=== PATIENT | male | born 1980 | race Caucasian/White ===

== ENCOUNTER 2019-10-16 13:38 | Inpatient (IN) ==
[2019-10-16] MEDS ORDERED: IOPAMIDOL 100 ML BOTTLE IV ONE (13:39)
[2019-10-16] MEDS ORDERED: ONDANSETRON 4 MG/2 ML VIAL IV ONE (14:08)
[2019-10-16] MEDS ORDERED: 0.9 % SODIUM CHLORIDE 1,000 ML IV ONE ×2 (14:08→20:25)
[2019-10-16] MEDS ORDERED: LORazepam 2 MG/ML VIAL IV ONE (14:09)
[2019-10-16 14:30] LABS: POC Blood Urea Nitrogen 14 mg/dl (6-20); POC CO2 26 mmol/L (22-30); POC Calcium, Ionized 0.92 mmol/L (1.16-1.32); POC Chloride 104 mmol/L (96-108); POC Creatinine 0.6 mg/dl (0.7-1.2); POC Glucose, Random 117 mg/dL (70-105); POC Sodium 129 mmol/L (133-145)
--- NOTE | 2019-10-16 14:38 | XRay Report ---
INDICATION: abdominal distention and pain TECHNIQUE: Supine and upright abdomen. COMPARISON: None FINDINGS:Unremarkable bowel gas pattern. No dilated gas-filled small bowel. No evidence for mechanical small bowel obstruction. No colonic distention. There is no pneumoperitoneum. No biliary or portal venous gas. There is no pneumatosis. No pathologic calcifications There is a linear density at the right lung base consistent with atelectasis or scarring IMPRESSION: Negative abdomen Interpreted and Authenticated by: Ramana Gordon 10/16/19
[2019-10-16 15:10] LABS: Basophils # (Auto) 0.03 K/mcL (0.00-0.30); Basophils % (Auto) 0.2 % (0.0-2.0); Eosinophils # (Auto) 0.05 K/mcL (0.00-0.70); Eosinophils % (Auto) 0.4 % (0.0-7.0); Hematocrit 44.1 % (40.1-51.0); Hemoglobin 15.9 g/dL (13.7-17.5); Lymphocytes # (Auto) 0.71 K/mcL (1.50-4.80); Lymphocytes % (Auto) 5.1 % (15.5-49.0); Mean Cell Volume 102.1 fL (80.0-100.0); Mean Corpuscular HGB Conc 36.1 g/dL (31.0-36.0); Mean Platelet Volume 11.6 fL (7.4-10.4); Monocytes # (Auto) 0.61 K/mcL (0.10-0.90); Monocytes % (Auto) 4.3 % (1.0-12.0); Platelet Count 295 K/mcL (140-440); RBC 4.32 M/mcL (4.63-6.08); Red Cell Distribution Width 13.3 % (11.5-14.5)
--- NOTE | 2019-10-16 15:40 | Ultrasound Report ---
INDICATION: diffuse distention and pain, worse RUQ abd pain TECHNIQUE: Grayscale and color flow Doppler spectral imaging COMPARISON: Previous CT scan dated 09/07/2019. Previous limited abdominal ultrasound dated 09/07/2019 FINDINGS: Pancreas:Visualized portions of the pancreas are negative Gallbladder:Negative. No cholelithiasis. No gallbladder wall thickening or pericholecystic fluid. Bile Ducts:No intra or extrahepatic bile duct dilatation. Common bile duct measures 4 mm Liver:There is enlarged. Liver measures approximately 21 cm maximally. Liver is echogenic and attenuates sound relative to the right kidney. Appearance is consistent with hepatic steatosis. Findings are unchanged since 09/07/2019. Liver contour is smooth. No ascites. Spleen:No splenomegaly. No focal intrasplenic abnormality. Normal hepatopedal portal venous flow Kidneys:Right kidney measures 11.5 x 5.0 x 4.1 cm. Left kidney measures 13.2 x 5.1 x 4.6 cm. No solid or cystic mass. No hydronephrosis Vascular:No abdominal aortic aneurysm IMPRESSION: 1. Hepatomegaly 2. Echogenic liver consistent with hepatic steatosis. No focal mass. 3. No ascites 4. Negative gallbladder 5. No interval change since 09/07/2019 Interpreted and Authenticated by: Ramana Gordon 10/16/19
[2019-10-16 16:17] LABS: ALT/SGPT 45 U/l (0-40); AST/SGOT 37 U/l (0-37); Albumin/Globulin Ratio 1.6 (1.0-2.3); Alkaline Phosphatase 148 U/L (39-117); Blood Urea Nitrogen 10 mg/dl (6-20); Calcium 8.9 mg/dl (8.6-10.4); Carbon Dioxide 23 mmol/L (22-30); Chloride 99 mmol/L (96-108); Globulin 2.5 gm/dL (2.2-3.7); Glomerular Filtration Rate 120; Glucose 118 mg/dL (70-105)
[2019-10-16] MEDS ORDERED: fentaNYL 100 MCG/2 ML VIAL IV ONE ×2 (16:37→18:08)
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
--- NOTE | 2019-10-16 17:53 | Cat Scan Report ---
INDICATION: RUQ abd pain, elevated lipase, distention COMPARISON: Previous CT scan dated 09/07/2019. Previous ultrasound dated 10/16/2019 TECHNIQUE: Axial images were obtained through the abdomen and pelvis. Sagittally and coronally reformatted images. 70 mL Isovue 370 injected intravenously. Oral contrast material was not administered FINDINGS: Lung bases:Lung bases are negative. No parenchymal infiltrate or mass. No pleural fluid. No pericardial fluid. Liver:Liver is enlarged. Liver measures approximately 20 cm in the midclavicular line. Left lobe of the liver is quite prominent and extends to the left lateral abdominal wall. There is severe hepatic steatosis. Liver contour is smooth. No focal hepatic mass Gallbladder, bilary:No calcified gallstones. No gallbladder wall thickening. No dilated intra or extrahepatic bile ducts. Spleen:Mild splenomegaly. Spleen measures 14 x 10 x 7 cm. Normal enhancement of splenic and portal veins Pancreas:Interstitial edematous pancreatitis. There is prominent peripancreatic inflammatory change. There is retroperitoneal fluid in the right and left anterior pararenal spaces. As no peripancreatic pseudocyst. The pancreas appears perfused without evidence for pancreatic necrosis or abscess. No detectable pancreatic mass. No dilated duct. Adrenal glands:Negative Kidneys, ureters, bladder:No solid or cystic renal mass. No hydronephrosis. No obstructing calculi. There is no hydroureter. No ureteral stone No bladder calculi or detectable mass Gastrointestinal:No detectable colonic mass. There is no diverticulitis. Small bowel is negative. No mechanical small bowel obstruction. Stomach and duodenum are unremarkable Appendix: The appendix is not visualized. Probable previous appendectomy Vascular:Negative abdominal aorta. Superior mesenteric artery and celiac trunk are normal. Normal opacification of the inferior mesenteric artery Lymphatic:No retroperitoneal or mesenteric adenopathy Mesentery, peritoneum: No free intraperitoneal fluid. No pneumoperitoneum. No intra-abdominal abscess Reproductive:Prostate is not enlarged Musculoskeletal:No lumbar compression fractures. Sacrum and pelvis are negative. No hip fracture. IMPRESSION: 1. Interstitial edematous pancreatitis. No pancreatic pseudocyst. No pancreatic necrosis or abscess 2. Peripancreatic inflammatory change. Mild fluid in the right and left anterior pararenal space 3. Hepatomegaly and severe hepatic steatosis The exam was performed using radiation dose optimization techniques including, but not limited to, automated exposure control, adjustment of the mA and/or kV according to patient size and use of iterative reconstruction technique. Interpreted and Authenticated by: Ramana Gordon 10/16/19
[2019-10-16 18:28] LABS: Amphetamine Screen,Urine NONE DETECTED (NONDETECTED); Barbiturate Screen,Urine NONE DETECTED (NONDETECTED); Benzodiazepines Screen,Urine NONE DETECTED (NONDETECTED); Cannabinoid Screen,Urine NONE DETECTED (NONDETECTED); Cocaine Screen,Urine NONE DETECTED (NONDETECTED); Opiate Screen,Urine NONE DETECTED (NONDETECTED); Oxycodone, Urine Screen NONE DETECTED (NONDETECTED); Phencyclidine Screen,Urine NONE DETECTED (NONDETECTED)
[2019-10-16] MEDS ORDERED: 0.9 % SODIUM CHLORIDE 1,000 ML IV SCH (18:56)
[2019-10-16] MEDS ORDERED: POLYETHYLENE GLYCOL 3350 17 GM PACKET PO PRN (18:56)
[2019-10-16] MEDS ORDERED: BISACODYL 10 MG SUPP.RECT PR PRN (18:56)
[2019-10-16] MEDS ORDERED: ACETAMINOPHEN 325 MG TABLET PO PRN (18:56)
[2019-10-16] MEDS ORDERED: MAGNESIUM SULFATE 2 GM/50 ML BAG IV PRN (18:56)
[2019-10-16] MEDS: HYDROmorphone 0.5 MG/0.5 ML SYRINGE IV PRN ×5 (19:36→23:58)
[2019-10-16] MEDS: ONDANSETRON 4 MG/2 ML VIAL IV PRN (19:36)
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
[2019-10-16] MEDS: DOCUSATE SODIUM 100 MG CAPSULE PO SCH (19:58)
[2019-10-16] MEDS ORDERED: PROMETHAZINE 25 MG/ML VIAL ONE (20:35)
[2019-10-16] MEDS: HEPARIN 5,000 UNIT/ML VIAL SQ SCH (20:40)
[2019-10-16] MEDS: LORazepam 2 MG/ML VIAL IV PRN (20:41)
[2019-10-16] MEDS: BUDESONIDE 0.5 MG/2 ML AMPUL.NEB NEB SCH (20:52)
[2019-10-16] MEDS: IPRATROPIUM/ALBUTEROL 3 ML AMPUL.NEB NEB PRN (21:01)
[2019-10-16] MEDS: 0.9 % SODIUM CHLORIDE 1,000 ML IV SCH (21:22)
[2019-10-16] MEDS: SENNOSIDES/DOCUSATE SODIUM 1 TAB TABLET PO SCH (21:24)
[2019-10-16] MEDS: 0.9 % SODIUM CHLORIDE 10 ML SYRINGE IV SCH ×2 (21:24→23:57)
[2019-10-17] MEDS: HYDROmorphone 0.5 MG/0.5 ML SYRINGE IV PRN ×18 (01:05→23:33)
[2019-10-17] MEDS: 0.9 % SODIUM CHLORIDE 1,000 ML IV SCH ×5 (01:06→21:11)
[2019-10-17] MEDS: LORazepam 2 MG/ML VIAL IV PRN ×5 (02:03→21:34)
[2019-10-17] MEDS: PROMETHAZINE 25 MG/ML VIAL IV PRN ×4 (02:05→19:30)
[2019-10-17] MEDS ORDERED: METOPROLOL TARTRATE 5 MG/5 ML VIAL IV ONE ×2 (02:12→05:35)
[2019-10-17] MEDS: IPRATROPIUM/ALBUTEROL 3 ML AMPUL.NEB NEB PRN ×3 (04:57→20:43)
[2019-10-17] MEDS: 0.9 % SODIUM CHLORIDE 10 ML SYRINGE IV SCH ×3 (06:33→21:11)
[2019-10-17] MEDS: NICOTINE 21 MG PATCH TOPICAL SCH (08:01)
[2019-10-17 08:20] LABS: Hematocrit 41.9 % (40.1-51.0); Hemoglobin 14.4 g/dL (13.7-17.5); Mean Cell Volume 105.5 fL (80.0-100.0); Mean Corpuscular HGB Conc 34.4 g/dL (31.0-36.0); Mean Platelet Volume 10.3 fL (7.4-10.4); Platelet Count 229 K/mcL (140-440); RBC 3.97 M/mcL (4.63-6.08); Red Cell Distribution Width 13.3 % (11.5-14.5); WBC 20.3 K/mcL (4.50-11.00)
[2019-10-17 08:39] LABS: ALT/SGPT 33 U/l (0-40); AST/SGOT 29 U/l (0-37); Albumin 3.4 gm/dL (3.2-5.2); Albumin/Globulin Ratio 1.3 (1.0-2.3); Alkaline Phosphatase 121 U/L (39-117); Bilirubin,Direct 0.3 mg/dL (0.0-0.3); Bilirubin,Total 0.8 mg/dL (0.0-1.0); Blood Urea Nitrogen 7 mg/dl (6-20); Chloride 104 mmol/L (96-108); Globulin 2.7 gm/dL (2.2-3.7); Glomerular Filtration Rate 128; Glucose 84 mg/dL (70-105); Lactate Dehydrogenase 332 U/L (94-250); Triglycerides 126 mg/dl (<150)
[2019-10-17 08:41] LABS: Carbon Dioxide 18 mmol/L (22-30); Phosphorous 2.2 mg/dL (2.7-4.5)
[2019-10-17] MEDS: HEPARIN 5,000 UNIT/ML VIAL SQ SCH ×2 (09:02→21:34)
[2019-10-17] MEDS: MULTIVIT,THER IRON,CA,FA & MIN 1 TABLET PO SCH (09:02)
[2019-10-17] MEDS: DOCUSATE SODIUM 100 MG CAPSULE PO SCH ×2 (09:02→21:11)
[2019-10-17 09:06] LABS: Lymphocytes % 1 % (15-49); Macrocytosis 1+ (NONE SEEN); Monocytes % (Manual) 5 % (1-12); Platelet Estimate NORMAL (NORMAL); RBC Morphology ABNORM (NORMAL); Segmented Neutrophils % 94 % (38-78)
--- NOTE | 2019-10-17 09:06 | Internal Med Progress Note ---
Medical - PN: Subj Patient information: Note initiated : 10/17/19 at 9:04 am Service Date, if different from initiated Date: [] Patient: Moises Royal a 38 y/o M admitted on 10/16/19 for mid abd pain. Chief Complaint: [] Interval history: Mr. Royal is a 38 year old M with history of chronic IV drug use/COPD, hype rtension/hepatitis C who presents to the ER with 2 days onset of worsening abdominal pain described as 6 out of 10-10 out of 10 epigastric with radiation to the back associated with nausea vomiting. Patient consumes alcohol intermittently. He denies associated fever, chills, diarrhea, dysuria, headache, photophobia. Initial work-up in the ER was consistent with severe pancreatitis and CT/elevat ed lipase/tachycardia tachypnea elevated white count. Elevated [place] 2 score of 15. Patient started on aggressive crystalloid/pain medications Hospitalist service was consulted At the time evaluation patient is lethargic fatigue and drowsy under effect of IV opioids. He was able to answer some of the questions. He endorses 10 out of 10 pain. Recent alcohol use 2 days ago. Active smoker. Lives with mother. Denies new medications. 10/16-white count of 20,000. Persistent abdominal pain requiring hourly opioids. Status post 5 L crystalloid since admission. Keep n.p.o. Tachycardic at 130. Elevated LDH. Close monitoring for complications. Repeat CT if evidence of worsening pancreatitis to rule out hemorrhage/necrosis. Lipase down to 600. - Constitutional Vitals: Vital Signs Temp Pulse Resp BP Pulse Ox 99.8 F H 119 H 22 140/107 93 10/17/19 02:01 10/16/19 21:06 10/17/19 06:30 10/17/19 06:01 10/17/19 07:24 Period Temp Pulse Resp BP Sys/Campos Pulse Ox Last 24 Hr 98.4 F-100.1 F 109-133 17-30 137-173/97-117 87-98 Intake and Output 10/16/19 10/17/19 10/17/19 21:59 05:59 13:59 Intake Total 3000 1933 Output Total 375 450 Balance 2625 1483 Weight 232 lb Intake & Output: Intake & Output 10/16/19 10/17/19 10/17/19 21:59 05:59 13:59 Intake Total 3000 1933 Output Total 375 450 Balance 2625 1483 Weight 232 lb Intake: IV 3000 1933 Sodium Chloride 0.9% 1,000 ml @ 3000 1933 250 mls/hr IV .Q4H [facility] Rx#: [id number] Output: Void Amount 375 450 Other: Urine Appearance Clear Urine Color Dark Yellow Dark Yellow # Voids 1 # Unmeasured Emesis 2 General appearance: moderate distress Exam: Sedated under effect of opioids Labored breathing Tachycardic at 130s Distended abdomen Anxious Medical - PN: Obj Da - Labs CBC & Chem 7: 10/17/19 05:45 10/17/19 05:45 Labs: Abnormal Lab Results 10/17/19 10/17/19 10/16/19 05:45 05:45 14:56 WBC 20.3 H RBC 3.97 L MCV 105.5 H MCH 36.3 H MCHC MPV Gran % Lymph % (Auto) Gran # Lymph # (Auto) POC Sodium Carbon Dioxide 18 L Creatinine 0.6 L POC Creatinine Glucose POC Glucose Calcium 8.0 L POC WB Ioniz Calcium Phosphorus 2.2 L GGT 270 H ALT Alkaline Phosphatase 121 H Lactate Dehydrogenase 332 H C-Reactive Protein 3.7 H Lipase 685 H 10/16/19 10/16/19 13:53 13:53 WBC 14.0 H RBC 4.32 L MCV 102.1 H MCH 36.8 H MCHC 36.1 H MPV 11.6 H Gran % 90.0 H Lymph % (Auto) 5.1 L Gran # 12.64 H Lymph # (Auto) 0.71 L POC Sodium 129 L Carbon Dioxide Creatinine POC Creatinine 0.6 L Glucose 118 H POC Glucose 117 H Calcium POC WB Ioniz Calcium 0.92 L Phosphorus GGT ALT 45 H Alkaline Phosphatase 148 H Lactate Dehydrogenase C-Reactive Protein Lipase 1618 H Meds: Medications Acetaminophen (Tylenol) 650 mg PO Q4-6HP PRN; Protocol PRN Reason: Per Pain Protocol/Fever > 101 Albuterol/Ipratropium (Duoneb) 3 ml NEB Q4HP PRN PRN Reason: Shortness Of Breath Last Admin: 10/17/19 04:57 Dose: 3 ml Documented by: Bisacodyl (Dulcolax) 10 mg GA Q2-3DAYS PRN PRN Reason: Constipation Budesonide (Pulmicort) 0.5 mg NEB Q12 [facility] Last Admin: 10/16/19 20:52 Dose: 0.5 mg Documented by: Docusate Sodium (Colace) 100 mg PO BID [facility] Last Admin: 10/17/19 09:02 Dose: 100 mg Documented by: Heparin Sodium (Porcine) (Heparin) 5,000 unit SQ Q12 [facility] Last Admin: 10/17/19 09:02 Dose: 5,000 unit Documented by: Hydromorphone HCl (Dilaudid) 0 mg IV Q1HP PRN; Protocol PRN Reason: Per Pain Protocol Last Admin: 10/17/19 07:17 Dose: 0.5 mg Documented by: Sodium Chloride (Sodium Chloride 0.9%) 1,000 mls @ 0 mls/hr IV BOLUS [facility] Last Infusion: 10/16/19 20:47 Dose: Infused Documented by: Sodium Chloride (Sodium Chloride 0.9%) 1,000 mls @ 250 mls/hr IV .Q4H [facility] Last Admin: 10/17/19 05:12 Dose: 250 mls/hr Documented by: Acetaminophen (Ofirmev) 650 mg in 65 mls @ 130 mls/hr IV Q6HP PRN; Protocol PRN Reason: Per Pain Protocol/Fever > 101 Potassium Chloride 40 meq/ (Dextrose) 520 mls @ 130 mls/hr IV UD PRN PRN Reason: K+ = or < 3.5 Magnesium Sulfate (Magnesium Sulfate) 2 gm in 50 mls @ 50 mls/hr IV UD PRN PRN Reason: MG = or < 1.7 Iron Carb/Multivit/[place]/Folic Acid (Multivitamin W/Minerals) 1 tab PO DAILY [facility] Last Admin: 10/17/19 09:02 Dose: 1 tab Documented by: Lorazepam (Ativan) 0.5 mg IV Q4HP PRN PRN Reason: ANXIETY/SEDATION Last Admin: 10/17/19 08:00 Dose: 0.5 mg Documented by: Metoprolol Tartrate (Lopressor) 5 mg IV Q5M PRN PRN Reason: Tachyarrhythmias Nicotine (Nicoderm) 21 mg TOPICAL DAILY@1000 [facility] Last Admin: 10/17/19 08:01 Dose: 21 mg Documented by: Ondansetron HCl (Zofran Odt) 4 mg SL Q4-6HP PRN; Protocol PRN Reason: Nausea And Vomiting Ondansetron HCl (Zofran) 4 mg IV Q4-6HP PRN; Protocol PRN Reason: Nausea And Vomiting Last Admin: 10/16/19 19:36 Dose: 4 mg Documented by: Polyethylene Glycol (Miralax) 17 gm PO DAILYP PRN PRN Reason: Constipation Promethazine HCl (Phenergan) 0 mg IV Q4HP PRN PRN Reason: Nausea And Vomiting Last Admin: 10/17/19 02:05 Dose: 12.5 mg Documented by: Senna/Docusate Sodium (Senna Plus Tablet) 1 tab PO HS [facility] Last Admin: 10/16/19 21:24 Dose: Not Given Documented by: Sodium Chloride (Saline Flush) 10 ml IV Q8 [facility] Last Admin: 10/17/19 06:33 Dose: Not Given Documented by: Medical - PN: A/P - Time Spent With Patient Total time spent is greater than 50% in coordination of care (as documented) at patient's floor/unit and/or counseling patient: 25 - 35 minutes (1) Pancreatitis Status: Acute Assessment and plan: * Severe pancreatitis with elevated lipase/[place] Ira 2 score and [place] score on admit. Lipase now down to 600. White count 20,000. Aggressive crystalloids. Continue bowel rest/antiemetics and analgesics. * Severe abdominal pain continue IV opioids * History of hypertension continue as needed hydralazine. Hold oral medications until clinically improved history of IV drug use/opioid dependence currently on Suboxone.. Held in light of severe pain requiring opioids * Anxiety disorder continue as needed IV anxiolytics * History of COPD continue bronchodilators * Full code * Prophylaxis heparin Plan * Continue ICU care * Continue aggressive crystalloids * Serial lipase/CRP/abdominal imaging if indicated * Pain management * Prior medical condition management on IV medications until able to take orally * Patient remains critically ill Current Visit: Yes
[2019-10-17] MEDS: BUDESONIDE 0.5 MG/2 ML AMPUL.NEB NEB SCH ×2 (09:08→20:43)
[2019-10-17] MEDS: POTASSIUM CHLORIDE 40 MEQ in DEXTROSE 5% IN WATER 500 ML IV PRN (11:51)
[2019-10-17] MEDS ORDERED: POTASSIUM CHLORIDE 20 MEQ, MAGNESIUM SULFATE 16.24 MEQ, THIAMINE 100 MG, MVI, ADULT NO.... IV SCH (13:00)
[2019-10-17 16:12] LABS: Hematocrit 41.9 % (40.1-51.0); Mean Cell Volume 107.2 fL (80.0-100.0); Mean Corpuscular HGB Conc 33.4 g/dL (31.0-36.0); Mean Platelet Volume 10.1 fL (7.4-10.4); Platelet Count 210 K/mcL (140-440); RBC 3.91 M/mcL (4.63-6.08); Red Cell Distribution Width 13.4 % (11.5-14.5); WBC 20.4 K/mcL (4.50-11.00)
[2019-10-17 16:30] LABS: ALT/SGPT 29 U/l (0-40); AST/SGOT 26 U/l (0-37); Albumin 3.6 gm/dL (3.2-5.2); Albumin/Globulin Ratio 1.4 (1.0-2.3); Alkaline Phosphatase 116 U/L (39-117); Bilirubin,Direct 0.5 mg/dL (0.0-0.3); Bilirubin,Total 0.9 mg/dL (0.0-1.0); Blood Urea Nitrogen 7 mg/dl (6-20); Calcium 8.3 mg/dl (8.6-10.4); Carbon Dioxide 20 mmol/L (22-30); Chloride 103 mmol/L (96-108); Globulin 2.6 gm/dL (2.2-3.7); Glomerular Filtration Rate 120; Glucose 100 mg/dL (70-105); Lactate Dehydrogenase 382 U/L (94-250); Phosphorous 1.3 mg/dL (2.7-4.5); Triglycerides 130 mg/dl (<150); Uric Acid 4.7 mg/dL (2.5-8.0)
[2019-10-17 16:43] LABS: Anisocytosis 1+ (NONE SEEN); Eosinophils % (Manual) 2 % (0-7); Lymphocytes % 6 % (15-49); Macrocytosis 1+ (NONE SEEN); Monocytes % (Manual) 2 % (1-12); Platelet Estimate NORMAL (NORMAL); RBC Morphology ABNORM (NORMAL); Segmented Neutrophils % 90 % (38-78)
[2019-10-17] MEDS: METOPROLOL TARTRATE 5 MG/5 ML VIAL IV PRN ×2 (17:35→22:47)
[2019-10-17] MEDS: ONDANSETRON 4 MG/2 ML VIAL IV PRN (18:02)
[2019-10-17] MEDS: SENNOSIDES/DOCUSATE SODIUM 1 TAB TABLET PO SCH (21:11)
[2019-10-18] MEDS: HYDROmorphone 0.5 MG/0.5 ML SYRINGE IV PRN ×16 (01:02→22:18)
[2019-10-18] MEDS: ONDANSETRON 4 MG/2 ML VIAL IV PRN (01:37)
[2019-10-18] MEDS: LORazepam 2 MG/ML VIAL IV PRN ×5 (01:37→18:50)
[2019-10-18] MEDS: ACETAMINOPHEN 650 MG/65 ML BOTTLE IV PRN ×3 (02:07→18:50)
[2019-10-18] MEDS: 0.9 % SODIUM CHLORIDE 1,000 ML IV SCH ×2 (03:43→14:57)
[2019-10-18] MEDS: IPRATROPIUM/ALBUTEROL 3 ML AMPUL.NEB NEB PRN ×3 (04:49→20:36)
[2019-10-18] MEDS: 0.9 % SODIUM CHLORIDE 10 ML SYRINGE IV SCH ×5 (05:14→20:41)
[2019-10-18 06:27] LABS: Hematocrit 40.5 % (40.1-51.0); Hemoglobin 13.1 g/dL (13.7-17.5); Mean Cell Volume 112.2 fL (80.0-100.0); Mean Corpuscular HGB Conc 32.3 g/dL (31.0-36.0); Mean Platelet Volume 10.5 fL (7.4-10.4); Platelet Count 194 K/mcL (140-440); RBC 3.61 M/mcL (4.63-6.08); Red Cell Distribution Width 13.2 % (11.5-14.5); WBC 20.9 K/mcL (4.50-11.00)
[2019-10-18 06:50] LABS: ALT/SGPT 25 U/l (0-40); AST/SGOT 30 U/l (0-37); Albumin 3.1 gm/dL (3.2-5.2); Albumin/Globulin Ratio 1.1 (1.0-2.3); Alkaline Phosphatase 128 U/L (39-117); Bilirubin,Direct 0.6 mg/dL (0.0-0.3); Blood Urea Nitrogen 7 mg/dl (6-20); Calcium 8.2 mg/dl (8.6-10.4); Carbon Dioxide 17 mmol/L (22-30); Chloride 103 mmol/L (96-108); Globulin 2.9 gm/dL (2.2-3.7); Glomerular Filtration Rate 128; Glucose 62 mg/dL (70-105); Lactate Dehydrogenase 354 U/L (94-250); Triglycerides 114 mg/dl (<150); Uric Acid 4.8 mg/dL (2.5-8.0)
[2019-10-18 08:31] LABS: Eosinophils % (Manual) 1 % (0-7); Lymphocytes % 3 % (15-49); Macrocytosis 2+ (NONE SEEN); Monocytes % (Manual) 2 % (1-12); Platelet Estimate NORMAL (NORMAL); RBC Morphology ABNORM (NORMAL); Segmented Neutrophils % 94 % (38-78)
[2019-10-18] MEDS: THIAMINE 100 MG TABLET PO SCH (08:49)
[2019-10-18] MEDS: MULTIVIT,THER IRON,CA,FA & MIN 1 TABLET PO SCH (08:49)
[2019-10-18] MEDS: DOCUSATE SODIUM 100 MG CAPSULE PO SCH ×2 (08:49→20:23)
[2019-10-18] MEDS: HEPARIN 5,000 UNIT/ML VIAL SQ SCH ×2 (08:53→20:24)
[2019-10-18] MEDS: BUDESONIDE 0.5 MG/2 ML AMPUL.NEB NEB SCH ×2 (09:05→20:36)
[2019-10-18] MEDS ORDERED: ALBUTEROL SULFATE 200 PUFF INHALER INH PRN (09:18)
[2019-10-18] MEDS ORDERED: Budesonide/Formoterol Fumarate [Symbicort] 160-4.5 mcg Inhaler INH PRN (09:18)
[2019-10-18] MEDS ORDERED: DIAZEPAM 10 MG/2 ML SYRINGE IV PRN (09:19)
[2019-10-18] MEDS: DEXTROSE 5%-1/2NS 1,000 ML IV SCH (09:20)
--- NOTE | 2019-10-18 09:24 | Internal Med Progress Note ---
Medical - PN: Subj Patient information: Note initiated : 10/18/19 at 9:22 am Service Date, if different from initiated Date: [] Patient: Moises Royal a 38 y/o M admitted on 10/16/19 for mid abd pain. Chief Complaint: [] Interval history: Mr. Royal is a 38 year old M with history of chronic IV drug use/COPD, hype rtension/hepatitis C who presents to the ER with 2 days onset of worsening abdominal pain described as 6 out of 10-10 out of 10 epigastric with radiation to the back associated with nausea vomiting. Patient consumes alcohol intermittently. He denies associated fever, chills, diarrhea, dysuria, headache, photophobia. Initial work-up in the ER was consistent with severe pancreatitis and CT/elevat ed lipase/tachycardia tachypnea elevated white count. Elevated [place] 2 score of 15. Patient started on aggressive crystalloid/pain medications Hospitalist service was consulted At the time evaluation patient is lethargic fatigue and drowsy under effect of IV opioids. He was able to answer some of the questions. He endorses 10 out of 10 pain. Recent alcohol use 2 days ago. Active smoker. Lives with mother. Denies new medications. 10/16-white count of 20,000. Persistent abdominal pain requiring hourly opioids. Status post 5 L crystalloid since admission. Keep n.p.o. Tachycardic at 130. Elevated LDH. Close monitoring for complications. Repeat CT if evidence of worsening pancreatitis to rule out hemorrhage/necrosis. Lipase down to 600. 10/17-patient showing signs of alcohol withdrawal. Worsening pancreatitis with elevated CRP. Remains tachycardic around 130s to 140s. Now hypoxia requiring 3 days oxygen. Stat chest x-ray. Continue [facility]WA protocol. Remains delirious and confused. On 3 days oxygen. Distended abdomen. Improving urinary output. White count 20,900. LDH downtrending, creatinine 0.6. Continues to remain critically ill. Start Dobbhoff tube feeding today at a slow rate. - Constitutional Vitals: Vital Signs Temp Pulse Resp BP Pulse Ox 98.6 F 131 H 19 151/98 91 10/18/19 04:00 10/18/19 09:15 10/18/19 09:15 10/18/19 07:01 10/18/19 09:06 Period Temp Pulse Resp BP Sys/Campos Pulse Ox Last 24 Hr 98.6 F-100.7 F 131-151 13-32 135-166/85-134 84-99 Intake and Output 10/17/19 10/18/19 10/18/19 21:59 05:59 13:59 Intake Total 941 1045 620 Output Total 450 850 Balance 491 195 620 Weight 237 lb 8 oz Intake & Output: Intake & Output 10/17/19 10/18/19 10/18/19 21:59 05:59 13:59 Intake Total 941 1045 620 Output Total 450 850 Balance 491 195 620 Weight 237 lb 8 oz Intake: IV 941 1045 620 Sodium Chloride 0.9% 1,000 ml @ 941 980 620 125 mls/hr IV .Q8H [facility] Rx#: [id number] Output: Void Amount 450 850 Other: Urine Appearance Clear Clear Urine Color Dark Unique Dark Unique Urine Odor Strong # Voids 300 General appearance: moderate distress Exam: Confused and drowsy Distended and tender abdomen Minimally labored breathing on 3 days oxygen Tachycardia 130s to 140s No lymphedema Medical - PN: Obj Da - Labs CBC & Chem 7: 10/18/19 04:39 10/18/19 04:39 Labs: Abnormal Lab Results 10/18/19 10/18/19 10/18/19 04:39 04:39 04:39 WBC 20.9 H RBC 3.61 L Hgb 13.1 L MCV 112.2 H MCH 36.3 H MCHC MPV 10.5 H Gran % Lymph % (Auto) Gran # Lymph # (Auto) Seg Neutrophils % 94 H Lymphocytes % 3 L RBC Morphology Abnorm A Anisocytosis Macrocytosis 2+ A POC Sodium Carbon Dioxide 17 L Creatinine 0.6 L POC Creatinine Glucose 62 L POC Glucose Calcium 8.2 L POC WB Ioniz Calcium Phosphorus 2.0 L Direct Bilirubin 0.6 H GGT 239 H ALT Alkaline Phosphatase 128 H Lactate Dehydrogenase 354 H C-Reactive Protein 34.5 H Albumin 3.1 L Lipase 144 H 10/17/19 10/17/19 10/17/19 15:32 15:32 11:45 WBC 20.4 H RBC 3.91 L Hgb MCV 107.2 H MCH 35.8 H MCHC MPV Gran % Lymph % (Auto) Gran # Lymph # (Auto) Seg Neutrophils % 90 H Lymphocytes % 6 L RBC Morphology Abnorm A Anisocytosis 1+ A Macrocytosis 1+ A POC Sodium Carbon Dioxide 20 L Creatinine POC Creatinine Glucose POC Glucose Calcium 8.3 L POC WB Ioniz Calcium Phosphorus 1.3 L Direct Bilirubin 0.5 H GGT 257 H ALT Alkaline Phosphatase Lactate Dehydrogenase 382 H C-Reactive Protein 25.3 H Albumin Lipase 10/17/19 10/17/19 10/16/19 05:45 05:45 14:56 WBC 20.3 H RBC 3.97 L Hgb MCV 105.5 H MCH 36.3 H MCHC MPV Gran % Lymph % (Auto) Gran # Lymph # (Auto) Seg Neutrophils % 94 H Lymphocytes % 1 L RBC Morphology Abnorm A Anisocytosis Macrocytosis 1+ A POC Sodium Carbon Dioxide 18 L Creatinine 0.6 L POC Creatinine Glucose POC Glucose Calcium 8.0 L POC WB Ioniz Calcium Phosphorus 2.2 L Direct Bilirubin GGT 270 H ALT Alkaline Phosphatase 121 H Lactate Dehydrogenase 332 H C-Reactive Protein 3.7 H Albumin Lipase 685 H 10/16/19 10/16/19 13:53 13:53 WBC 14.0 H RBC 4.32 L Hgb MCV 102.1 H MCH 36.8 H MCHC 36.1 H MPV 11.6 H Gran % 90.0 H Lymph % (Auto) 5.1 L Gran # 12.64 H Lymph # (Auto) 0.71 L Seg Neutrophils % Lymphocytes % RBC Morphology Anisocytosis Macrocytosis POC Sodium 129 L Carbon Dioxide Creatinine POC Creatinine 0.6 L Glucose 118 H POC Glucose 117 H Calcium POC WB Ioniz Calcium 0.92 L Phosphorus Direct Bilirubin GGT ALT 45 H Alkaline Phosphatase 148 H Lactate Dehydrogenase C-Reactive Protein Albumin Lipase 1618 H Meds: Medications Acetaminophen (Tylenol) 650 mg PO Q4-6HP PRN; Protocol PRN Reason: Per Pain Protocol/Fever > 101 Albuterol Sulfate (Ventolin) 2 puff INH .Q4-6H PRN PRN Reason: shortness of breath or wheezing Albuterol/Ipratropium (Duoneb) 3 ml NEB Q4HP PRN PRN Reason: Shortness Of Breath Last Admin: 10/18/19 09:05 Dose: 3 ml Documented by: Bisacodyl (Dulcolax) 10 mg LA Q2-3DAYS PRN PRN Reason: Constipation Budesonide (Pulmicort) 0.5 mg NEB Q12 [facility] Last Admin: 10/18/19 09:05 Dose: 0.5 mg Documented by: Bupropion HCl (Wellbutrin) mg PO TID [facility] Clonidine HCl (Catapres) mg PO DAILY [facility] Diazepam (Valium) 10 mg IV Q2HP PRN PRN Reason: Alcohol Withdrawal Docusate Sodium (Colace) 100 mg PO BID [facility] Last Admin: 10/18/19 08:49 Dose: Not Given Documented by: Fluoxetine HCl (Prozac) 20 mg PO QDAY [facility] Furosemide (Lasix) 40 mg PO BID [facility] Gabapentin (Neurontin) 300 mg PO BID [facility] Heparin Sodium (Porcine) (Heparin) 5,000 unit SQ Q12 [facility] Last Admin: 10/18/19 08:53 Dose: 5,000 unit Documented by: Hydromorphone HCl (Dilaudid) 0 mg IV Q1HP PRN; Protocol PRN Reason: Per Pain Protocol Last Admin: 10/18/19 08:02 Dose: 0.5 mg Documented by: Acetaminophen (Ofirmev) 650 mg in 65 mls @ 130 mls/hr IV Q6HP PRN; Protocol PRN Reason: Per Pain Protocol/Fever > 101 Last Admin: 10/18/19 08:03 Dose: 130 mls/hr Documented by: Potassium Chloride 40 meq/ (Dextrose) 520 mls @ 130 mls/hr IV UD PRN PRN Reason: K+ = or < 3.5 Last Admin: 10/17/19 11:51 Dose: 130 mls/hr Documented by: Magnesium Sulfate (Magnesium Sulfate) 2 gm in 50 mls @ 50 mls/hr IV UD PRN PRN Reason: MG = or < 1.7 Dextrose/Sodium Chloride (Dextrose 5%-1/2ns Iv Solution) 1,000 mls @ 75 mls/hr IV .[id number] [facility] Iron Carb/Multivit/[place]/Folic Acid (Multivitamin W/Minerals) 1 tab PO DAILY [facility] Last Admin: 10/18/19 08:49 Dose: Not Given Documented by: Lorazepam (Ativan) 0.5 mg IV Q4HP PRN PRN Reason: ANXIETY/SEDATION Last Admin: 10/18/19 05:41 Dose: 0.5 mg Documented by: Metoprolol Succinate (Toprol Xl) 25 mg PO QDAY [facility] Metoprolol Tartrate (Lopressor) 5 mg IV Q5M PRN PRN Reason: Tachyarrhythmias Last Admin: 10/17/19 22:47 Dose: 5 mg Documented by: Nicotine (Nicoderm) 21 mg TOPICAL DAILY@1000 [facility] Last Admin: 10/17/19 08:01 Dose: 21 mg Documented by: Non-Formulary Medication (Budesonide/Formoterol Fumarate [Symbicort 160-4.5 Mcg Inhaler]) 2 puff PO BID PRN PRN Reason: Shortness Of Breath Omeprazole (Prilosec) 20 mg PO QDAY [facility] Ondansetron HCl (Zofran Odt) 4 mg SL Q4-6HP PRN; Protocol PRN Reason: Nausea And Vomiting Ondansetron HCl (Zofran) 4 mg IV Q4-6HP PRN; Protocol PRN Reason: Nausea And Vomiting Last Admin: 10/18/19 01:37 Dose: 4 mg Documented by: Polyethylene Glycol (Miralax) 17 gm PO DAILYP PRN PRN Reason: Constipation Promethazine HCl (Phenergan) 0 mg IV Q4HP PRN PRN Reason: Nausea And Vomiting Last Admin: 10/17/19 19:30 Dose: 12.5 mg Documented by: Senna/Docusate Sodium (Senna Plus Tablet) 1 tab PO [facility] Last Admin: 10/17/19 21:11 Dose: Not Given Documented by: Sodium Chloride (Saline Flush) 10 ml IV Q8 [facility] Last Admin: 10/18/19 05:14 Dose: Not Given Documented by: Sodium Chloride (Saline Flush) 10 ml IV Q8 [facility] Tamsulosin HCl (Flomax) 0.4 mg PO QHS [facility] Thiamine HCl (Vitamin B1) 100 mg PO DAILY [facility] Last Admin: 10/18/19 08:49 Dose: Not Given Documented by: Medical - PN: A/P - Time Spent With Patient Total time spent is greater than 50% in coordination of care (as documented) at patient's floor/unit and/or counseling patient: Greater than 35 minutes (Critical care time) (1) Pancreatitis Status: Acute Assessment and plan: * Severe pancreatitis with multiorgan dysfunction including early ARDS/[place] 2 score 16. Elevated [place] score at 48 hours. Lipase downtrending from 1200- >200. White count elevated at 21,000. Continue crystalloids/bowel rest. Dobbhoff tube feeding * Hypoxic respiratory failure now on 3 days oxygen. Likely early ARDS. Chest imaging. Supplemental oxygen. Initiate diuresis. * Alcohol withdrawal start [facility] protocol on benzodiazepine. Continue multivitamin/thiamine * Severe abdominal pain on as needed IV opioids * History of hypertension continue as needed hydralazine. Restart oral medications * History of IV drug use/opioid dependence currently on Suboxone. Held in light of severe pain requiring opioids * Anxiety disorder continue as needed IV anxiolytics * History of COPD continue bronchodilators * Full code * Prophylaxis heparin Plan * Continue ICU care * Chest imaging * Start [facility] protocol * Restart home medications * Enteral nutrition via Dobbhoff * Serial lipase/CRP * Repeat abdominal imaging in 24 hours if continues to deteriorate * Aggressive pain management * Patient remains critically ill Current Visit: Yes
--- NOTE | 2019-10-18 09:49 | XRay Report ---
INDICATION: hypoxia TECHNIQUE: AP portable upright chest x-ray COMPARISON: Previous chest x-ray dated 09/07/2019 FINDINGS: Lungs:Linear densities at both lung bases consistent with atelectasis. No other pulmonary parenchymal abnormality. No parenchymal consolidation or evidence for pneumonia. There is no discrete mass. Heart, vascular:No significant cardiomegaly. Pulmonary vascularity is normal. No pulmonary edema or pulmonary congestion Mediastinum, serjio:No mediastinal widening. No hilar mass Pleura:No pleural fluid. No pleural-based mass or calcification Skeletal:Negative. IMPRESSION: 1. Linear parenchymal densities at both lung bases consistent with atelectasis 2. No parenchymal consolidation. No evidence for pneumonia Interpreted and Authenticated by: Ramana Gordon 10/18/19
[2019-10-18] MEDS: NICOTINE 21 MG PATCH TOPICAL SCH (10:04)
[2019-10-18] MEDS ORDERED: METOPROLOL SUCCINATE 25 MG TAB.XL.24H PO ONE (12:32)
[2019-10-18] MEDS: PANTOPRAZOLE 40 MG VIAL IV SCH (13:17)
--- NOTE | 2019-10-18 13:23 | XRay Report ---
INDICATION: dobhoff placement TECHNIQUE: Supine abdomen. COMPARISON: None FINDINGS:Pelvic tip feeding tube with its tip in the gastric antrum. Intensive care unit was called with these results IMPRESSION: Metallic tip feeding tube with its tip in the gastric antrum Interpreted and Authenticated by: Ramana Gordon 10/18/19
--- NOTE | 2019-10-18 14:17 | XRay Report ---
INDICATION: advance dobhoff to reenaenu TECHNIQUE: 32 seconds fluoroscopy utilized. A Dobbhoff feeding tube had been placed in the stomach in the intensive care unit. This tube was advanced into the duodenum, proximal to the ligament of Treitz. IMPRESSION: Dobbhoff feeding tube is advanced into the distal duodenum. Interpreted and Authenticated by: Ramana Gordon 10/18/19
[2019-10-18] MEDS: FUROSEMIDE 40 MG TABLET PO SCH (15:32)
[2019-10-18] MEDS: buPROPion 100 MG TABLET PO SCH ×2 (15:35→20:24)
[2019-10-18] MEDS: PROMETHAZINE 25 MG/ML VIAL IV PRN (16:53)
[2019-10-18] MEDS: TAMSULOSIN 0.4 MG CAPSULE PO SCH (20:23)
[2019-10-18] MEDS: GABAPENTIN 300 MG CAPSULE PO SCH (20:23)
[2019-10-18] MEDS: SENNOSIDES/DOCUSATE SODIUM 1 TAB TABLET PO SCH (20:24)
[2019-10-18] MEDS: CHLORHEXIDINE GLUCONATE 1 ML ORAL.SOL SWABMOUTH SCH (20:24)
[2019-10-19] MEDS: ACETAMINOPHEN 650 MG/65 ML BOTTLE IV PRN ×2 (00:01→23:29)
[2019-10-19] MEDS: LORazepam 2 MG/ML VIAL IV PRN ×4 (00:05→22:49)
[2019-10-19] MEDS: DEXTROSE 5%-1/2NS 1,000 ML IV SCH ×4 (00:05→16:30)
[2019-10-19] MEDS: ONDANSETRON 4 MG/2 ML VIAL IV PRN ×3 (00:50→16:30)
[2019-10-19] MEDS: IPRATROPIUM/ALBUTEROL 3 ML AMPUL.NEB NEB PRN (01:27)
[2019-10-19] MEDS: HYDROmorphone 0.5 MG/0.5 ML SYRINGE IV PRN ×8 (01:28→21:32)
[2019-10-19] MEDS: 0.9 % SODIUM CHLORIDE 10 ML SYRINGE IV SCH ×3 (04:22→20:28)
[2019-10-19 06:15] LABS: Hematocrit 37.3 % (40.1-51.0); Hemoglobin 12.3 g/dL (13.7-17.5); Mean Platelet Volume 10.4 fL (7.4-10.4); Platelet Count 161 K/mcL (140-440); RBC 3.36 M/mcL (4.63-6.08); WBC 14.4 K/mcL (4.50-11.00)
[2019-10-19] MEDS: PANTOPRAZOLE 40 MG VIAL IV SCH (06:48)
[2019-10-19 06:55] LABS: Chloride 98 mmol/L (96-108)
[2019-10-19 06:56] LABS: ALT/SGPT 31 U/l (0-40); AST/SGOT 56 U/l (0-37); Albumin 2.8 gm/dL (3.2-5.2); Albumin/Globulin Ratio 0.8 (1.0-2.3); Alkaline Phosphatase 166 U/L (39-117); Bilirubin,Direct 0.5 mg/dL (0.0-0.3); Blood Urea Nitrogen 5 mg/dl (6-20); Calcium 8.5 mg/dl (8.6-10.4); Carbon Dioxide 20 mmol/L (22-30); Globulin 3.4 gm/dL (2.2-3.7); Glomerular Filtration Rate 128; Glucose 92 mg/dL (70-105); Lactate Dehydrogenase 392 U/L (94-250); Phosphorous 1.1 mg/dL (2.7-4.5); Triglycerides 136 mg/dl (<150); Uric Acid 5.4 mg/dL (2.5-8.0)
[2019-10-19] MEDS ORDERED: OMEPRAZOLE 20 MG CAPSULE PO SCH (07:30)
[2019-10-19] MEDS: BUDESONIDE 0.5 MG/2 ML AMPUL.NEB NEB SCH ×2 (08:36→20:05)
--- NOTE | 2019-10-19 09:19 | Internal Med Progress Note ---
Medical - PN: Subj Patient information: Note initiated : 10/19/19 at 9:15 am Service Date, if different from initiated Date: [] Patient: Moises Royal a 38 y/o M admitted on 10/16/19 for mid abd pain. Chief Complaint: [] Interval history: Mr. Royal is a 38 year old M with history of chronic IV drug use/COPD, hype rtension/hepatitis C who presents to the ER with 2 days onset of worsening abdominal pain described as 6 out of 10-10 out of 10 epigastric with radiation to the back associated with nausea vomiting. Patient consumes alcohol intermittently. He denies associated fever, chills, diarrhea, dysuria, headache, photophobia. Initial work-up in the ER was consistent with severe pancreatitis and CT/elevat ed lipase/tachycardia tachypnea elevated white count. Elevated [place] 2 score of 15. Patient started on aggressive crystalloid/pain medications Hospitalist service was consulted At the time evaluation patient is lethargic fatigue and drowsy under effect of IV opioids. He was able to answer some of the questions. He endorses 10 out of 10 pain. Recent alcohol use 2 days ago. Active smoker. Lives with mother. Denies new medications. 10/16-white count of 20,000. Persistent abdominal pain requiring hourly opioids. Status post 5 L crystalloid since admission. Keep n.p.o. Tachycardic at 130. Elevated LDH. Close monitoring for complications. Repeat CT if evidence of worsening pancreatitis to rule out hemorrhage/necrosis. Lipase down to 600. 10/17-patient showing signs of alcohol withdrawal. Worsening pancreatitis with elevated CRP. Remains tachycardic around 130s to 140s. Now hypoxia requiring 3 days oxygen. Stat chest x-ray. Continue CIWA protocol. Remains delirious and confused. On 3 days oxygen. Distended abdomen. Improving urinary output. White count 20,900. LDH downtrending, creatinine 0.6. Continues to remain critically ill. Start Dobbhoff tube feeding today at a slow rate. 10/18-patient on conservative management with aggressive crystalloid/analgesics. White count down to 14,000. CRP downtrending now at 27. Lipase downtrending from 1200->66. Clinical improvement noted. On enteral tube feeds via Dobbhoff. Sodium 131, phosphorus down to 1.1 on replacement. - Constitutional Vitals: Vital Signs Temp Pulse Resp BP Pulse Ox 97.7 F 124 H 13 147/94 94 10/19/19 08:00 10/19/19 08:38 10/19/19 08:38 10/19/19 07:01 10/19/19 09:11 Period Temp Pulse Resp BP Sys/Campos Pulse Ox Last 24 Hr 96.9 F-98.6 F 124-127 12-27 131-170/75-106 89-100 Intake and Output 10/18/19 10/19/19 10/19/19 21:59 05:59 13:59 Intake Total 95 1180 Output Total 400 300 Balance -305 880 Weight 237 lb 2 oz Intake & Output: Intake & Output 10/18/19 10/19/19 10/19/19 21:59 05:59 13:59 Intake Total 95 1180 Output Total 400 300 Balance -305 880 Weight 237 lb 2 oz Intake: IV 65 1000 Dextrose 5%-1/2Ns IV Solution 1 1000 ,000 ml @ 75 mls/hr IV .[id number] [facility] Rx#:[id number] Tube Feeding 0 120 GI Tube Flush 30 60 Output: Void Amount 400 300 Exam: Sedated under effect of opioids Nonlabored breathing Distended abdomen Minimal lymphedema Medical - PN: Obj Da - Labs CBC & Chem 7: 10/19/19 04:45 10/19/19 04:45 Labs: Abnormal Lab Results 10/19/19 10/19/19 10/19/19 04:45 04:45 04:45 WBC 14.4 H RBC 3.36 L Hgb 12.3 L Hct 37.3 L MCV 111.0 H MCH 36.6 H MCHC MPV Gran % Lymph % (Auto) Gran # Lymph # (Auto) Seg Neutrophils % Lymphocytes % RBC Morphology Anisocytosis Macrocytosis POC Sodium Sodium 131 L Carbon Dioxide 20 L BUN 5 L Creatinine 0.6 L POC Creatinine Glucose POC Glucose Calcium 8.5 L POC WB Ioniz Calcium Phosphorus 1.1 L Direct Bilirubin 0.5 H GGT 240 H AST 56 H ALT Alkaline Phosphatase 166 H Lactate Dehydrogenase 392 H C-Reactive Protein 27.4 H Albumin 2.8 L Albumin/Globulin Ratio 0.8 L Lipase 66 H 10/18/19 10/18/19 10/18/19 04:39 04:39 04:39 WBC 20.9 H RBC 3.61 L Hgb 13.1 L Hct MCV 112.2 H MCH 36.3 H MCHC MPV 10.5 H Gran % Lymph % (Auto) Gran # Lymph # (Auto) Seg Neutrophils % 94 H Lymphocytes % 3 L RBC Morphology Abnorm A Anisocytosis Macrocytosis 2+ A POC Sodium Sodium Carbon Dioxide 17 L BUN Creatinine 0.6 L POC Creatinine Glucose 62 L POC Glucose Calcium 8.2 L POC WB Ioniz Calcium Phosphorus 2.0 L Direct Bilirubin 0.6 H GGT 239 H AST ALT Alkaline Phosphatase 128 H Lactate Dehydrogenase 354 H C-Reactive Protein 34.5 H Albumin 3.1 L Albumin/Globulin Ratio Lipase 144 H 10/17/19 10/17/19 10/17/19 15:32 15:32 11:45 WBC 20.4 H RBC 3.91 L Hgb Hct MCV 107.2 H MCH 35.8 H MCHC MPV Gran % Lymph % (Auto) Gran # Lymph # (Auto) Seg Neutrophils % 90 H Lymphocytes % 6 L RBC Morphology Abnorm A Anisocytosis 1+ A Macrocytosis 1+ A POC Sodium Sodium Carbon Dioxide 20 L BUN Creatinine POC Creatinine Glucose POC Glucose Calcium 8.3 L POC WB Ioniz Calcium Phosphorus 1.3 L Direct Bilirubin 0.5 H GGT 257 H AST ALT Alkaline Phosphatase Lactate Dehydrogenase 382 H C-Reactive Protein 25.3 H Albumin Albumin/Globulin Ratio Lipase 10/17/19 10/17/19 10/16/19 05:45 05:45 14:56 WBC 20.3 H RBC 3.97 L Hgb Hct MCV 105.5 H MCH 36.3 H MCHC MPV Gran % Lymph % (Auto) Gran # Lymph # (Auto) Seg Neutrophils % 94 H Lymphocytes % 1 L RBC Morphology Abnorm A Anisocytosis Macrocytosis 1+ A POC Sodium Sodium Carbon Dioxide 18 L BUN Creatinine 0.6 L POC Creatinine Glucose POC Glucose Calcium 8.0 L POC WB Ioniz Calcium Phosphorus 2.2 L Direct Bilirubin GGT 270 H AST ALT Alkaline Phosphatase 121 H Lactate Dehydrogenase 332 H C-Reactive Protein 3.7 H Albumin Albumin/Globulin Ratio Lipase 685 H 10/16/19 10/16/19 13:53 13:53 WBC 14.0 H RBC 4.32 L Hgb Hct MCV 102.1 H MCH 36.8 H MCHC 36.1 H MPV 11.6 H Gran % 90.0 H Lymph % (Auto) 5.1 L Gran # 12.64 H Lymph # (Auto) 0.71 L Seg Neutrophils % Lymphocytes % RBC Morphology Anisocytosis Macrocytosis POC Sodium 129 L Sodium Carbon Dioxide BUN Creatinine POC Creatinine 0.6 L Glucose 118 H POC Glucose 117 H Calcium POC WB Ioniz Calcium 0.92 L Phosphorus Direct Bilirubin GGT AST ALT 45 H Alkaline Phosphatase 148 H Lactate Dehydrogenase C-Reactive Protein Albumin Albumin/Globulin Ratio Lipase 1618 H Meds: Medications Acetaminophen (Tylenol) 650 mg PO Q4-6HP PRN; Protocol PRN Reason: Per Pain Protocol/Fever > 101 Albuterol Sulfate (Ventolin) 2 puff INH Q4-6HP PRN PRN Reason: shortness of breath/wheezing Albuterol/Ipratropium (Duoneb) 3 ml NEB Q4HP PRN PRN Reason: Shortness Of Breath Last Admin: 10/19/19 01:27 Dose: 3 ml Documented by: Bisacodyl (Dulcolax) 10 mg UT Q2-3DAYS PRN PRN Reason: Constipation Budesonide (Pulmicort) 0.5 mg NEB Q12 [facility] Last Admin: 10/19/19 08:36 Dose: 0.5 mg Documented by: Bupropion HCl (Wellbutrin) 100 mg PO TID [facility] Last Admin: 10/18/19 20:24 Dose: 100 mg Documented by: Chlorhexidine Gluconate (Peridex) 15 ml SWABMOUTH BID [facility] Last Admin: 10/18/19 20:24 Dose: 15 ml Documented by: Clonidine HCl (Catapres) 0.1 mg PO DAILY [facility] Diazepam (Valium) 10 mg IV Q2HP PRN PRN Reason: Alcohol Withdrawal Docusate Sodium (Colace) 100 mg PO BID [facility] Last Admin: 10/18/19 20:23 Dose: 100 mg Documented by: Fluoxetine HCl (Prozac) 20 mg PO QDAY [facility] Furosemide (Lasix) 40 mg PO BIDD [facility] Last Admin: 10/18/19 15:32 Dose: 40 mg Documented by: Gabapentin (Neurontin) 300 mg PO BID [facility] Last Admin: 10/18/19 20:23 Dose: 300 mg Documented by: Heparin Sodium (Porcine) (Heparin) 5,000 unit SQ Q12 [facility] Last Admin: 10/18/19 20:24 Dose: 5,000 unit Documented by: Hydromorphone HCl (Dilaudid) 0 mg IV Q1HP PRN; Protocol PRN Reason: Per Pain Protocol Last Admin: 10/19/19 06:47 Dose: 0.5 mg Documented by: Acetaminophen (Ofirmev) 650 mg in 65 mls @ 130 mls/hr IV Q6HP PRN; Protocol PRN Reason: Per Pain Protocol/Fever > 101 Last Admin: 10/19/19 00:01 Dose: 130 mls/hr Documented by: Potassium Chloride 40 meq/ (Dextrose) 520 mls @ 130 mls/hr IV UD PRN PRN Reason: K+ = or < 3.5 Last Infusion: 10/17/19 16:15 Dose: Infused Documented by: Magnesium Sulfate (Magnesium Sulfate) 2 gm in 50 mls @ 50 mls/hr IV UD PRN PRN Reason: MG = or < 1.7 Dextrose/Sodium Chloride (Dextrose 5%-1/2ns Iv Solution) 1,000 mls @ 75 mls/hr IV .[id number] [facility] Last Admin: 10/19/19 00:05 Dose: 75 mls/hr Documented by: Iron Carb/Multivit/[place]/Folic Acid (Multivitamin W/Minerals) 1 tab PO DAILY [facility] Last Admin: 10/18/19 08:49 Dose: Not Given Documented by: Lorazepam (Ativan) 0.5 mg IV Q4HP PRN PRN Reason: ANXIETY/SEDATION Last Admin: 10/19/19 05:12 Dose: 0.5 mg Documented by: Metoprolol Succinate (Toprol Xl) 25 mg PO QDAY [facility] Metoprolol Tartrate (Lopressor) 5 mg IV Q5M PRN PRN Reason: Tachyarrhythmias Last Admin: 10/17/19 22:47 Dose: 5 mg Documented by: Nicotine (Nicoderm) 21 mg TOPICAL DAILY@1000 [facility] Last Admin: 10/18/19 10:04 Dose: 21 mg Documented by: Ondansetron HCl (Zofran Odt) 4 mg SL Q4-6HP PRN; Protocol PRN Reason: Nausea And Vomiting Ondansetron HCl (Zofran) 4 mg IV Q4-6HP PRN; Protocol PRN Reason: Nausea And Vomiting Last Admin: 10/19/19 07:30 Dose: 4 mg Documented by: Pantoprazole Sodium (Protonix) 40 mg IV QAMAC [facility] Last Admin: 10/19/19 06:48 Dose: 40 mg Documented by: Budesonide/Formoterol Fumarate [Symbicort] 160-4.5 Mcg Inhaler 2 dose INH BIDP PRN PRN Reason: Shortness Of Breath Polyethylene Glycol (Miralax) 17 gm PO DAILYP PRN PRN Reason: Constipation Potassium Chloride (Kdur) 20 meq PO BIDCC [facility] Potassium/Phosphorus/Sodium (Neutra Phos) 2 packet PO BIDP PRN PRN Reason: Phosphorus less than 2.6 Promethazine HCl (Phenergan) 0 mg IV Q4HP PRN PRN Reason: Nausea And Vomiting Last Admin: 10/18/19 16:53 Dose: 12.5 mg Documented by: Senna/Docusate Sodium (Senna Plus Tablet) 1 tab PO HS [facility] Last Admin: 10/18/19 20:24 Dose: 1 tab Documented by: Sodium Chloride (Saline Flush) 10 ml IV Q8 [facility] Last Admin: 10/19/19 04:22 Dose: Not Given Documented by: Tamsulosin HCl (Flomax) 0.4 mg PO QHS [facility] Last Admin: 10/18/19 20:23 Dose: 0.4 mg Documented by: Thiamine HCl (Vitamin B1) 100 mg PO DAILY [facility] Last Admin: 10/18/19 08:49 Dose: Not Given Documented by: Medical - PN: A/P - Time Spent With Patient Total time spent is greater than 50% in coordination of care (as documented) at patient's floor/unit and/or counseling patient: 25 - 35 minutes (1) Pancreatitis Status: Acute Assessment and plan: * Severe pancreatitis with multiorgan dysfunction. Gradual clinical improvement noted. Downtrending CRP/lipase/white count. Continue crystalloids/bowel rest. Dobbhoff tube feeding advance by 10 cc/h daily * Hypoxic respiratory failure -on 4 L oxygen. DC IV fluids and continue diuresis. * Alcohol withdrawal start [facility] protocol on benzodiazepine. Continue multivitamin/thiamine * Severe abdominal pain on as needed IV opioids * History of hypertension continue as needed hydralazine. Back on oral clonidine/metoprolol * History of IV drug use/opioid dependence currently on Suboxone. Held in light of severe pain requiring opioids * Anxiety disorder continue as needed IV anxiolytics * History of COPD continue bronchodilators * Full code * Prophylaxis heparin Plan * Continue ICU care * Continue Dobbhoff feeding/conservative management * Aggressive pain management * Pre-existing medical condition management home medications * Discharge planning Current Visit: Yes
[2019-10-19] MEDS: FLUoxetine HCL 20 MG CAPSULE PO SCH (09:40)
[2019-10-19] MEDS: METOPROLOL SUCCINATE 25 MG TAB.XL.24H PO SCH (09:40)
[2019-10-19] MEDS: THIAMINE 100 MG TABLET PO SCH (09:40)
[2019-10-19] MEDS: cloNIDine HCL 0.1 MG TABLET PO SCH (09:40)
[2019-10-19] MEDS: CHLORHEXIDINE GLUCONATE 1 ML ORAL.SOL SWABMOUTH SCH ×2 (09:41→20:28)
[2019-10-19] MEDS: FUROSEMIDE 40 MG TABLET PO SCH ×2 (09:41→15:16)
[2019-10-19] MEDS: GABAPENTIN 300 MG CAPSULE PO SCH ×2 (09:41→20:27)
[2019-10-19] MEDS: MULTIVIT,THER IRON,CA,FA & MIN 1 TABLET PO SCH (09:41)
[2019-10-19] MEDS: DOCUSATE SODIUM 100 MG CAPSULE PO SCH ×2 (09:41→20:27)
[2019-10-19] MEDS: POTASSIUM CHLORIDE 20 MEQ TABLET PO SCH ×2 (09:41→16:29)
[2019-10-19] MEDS: buPROPion 100 MG TABLET PO SCH ×3 (09:43→20:45)
[2019-10-19 10:06] LABS: Band Neutrophils % 1 % (0-10); Eosinophils % (Manual) 2 % (0-7); Lymphocytes % 10 % (15-49); Macrocytosis 2+ (NONE SEEN); Monocytes % (Manual) 8 % (1-12); Platelet Estimate NORMAL (NORMAL); Polychromasia 1+ (NONE SEEN); RBC Morphology ABNORM (NORMAL); Segmented Neutrophils % 79 % (38-78)
[2019-10-19] MEDS: HEPARIN 5,000 UNIT/ML VIAL SQ SCH ×2 (10:28→20:27)
[2019-10-19] MEDS: NEUTRA PHOS 1 PACKET PO PRN (10:28)
[2019-10-19] MEDS: NICOTINE 21 MG PATCH TOPICAL SCH (10:28)
[2019-10-19] MEDS: SENNOSIDES/DOCUSATE SODIUM 1 TAB TABLET PO SCH (20:27)
[2019-10-19] MEDS: TAMSULOSIN 0.4 MG CAPSULE PO SCH (20:27)
[2019-10-19] MEDS: ONDANSETRON 4 MG ODT TABLET SL PRN (21:32)
[2019-10-20] MEDS: 0.9 % SODIUM CHLORIDE 10 ML SYRINGE IV SCH ×5 (04:35→23:10)
[2019-10-20] MEDS: HYDROmorphone 0.5 MG/0.5 ML SYRINGE IV PRN ×7 (04:40→23:09)
[2019-10-20] MEDS: LORazepam 2 MG/ML VIAL IV PRN ×2 (05:23→10:40)
[2019-10-20] MEDS: IPRATROPIUM/ALBUTEROL 3 ML AMPUL.NEB NEB PRN (06:07)
[2019-10-20 06:51] LABS: Hematocrit 37.8 % (40.1-51.0); Hemoglobin 12.5 g/dL (13.7-17.5); Mean Cell Volume 108.6 fL (80.0-100.0); Mean Corpuscular HGB Conc 33.1 g/dL (31.0-36.0); Mean Platelet Volume 10.3 fL (7.4-10.4); Platelet Count 220 K/mcL (140-440); RBC 3.48 M/mcL (4.63-6.08); Red Cell Distribution Width 12.8 % (11.5-14.5); WBC 10.1 K/mcL (4.50-11.00)
[2019-10-20 07:25] LABS: ALT/SGPT 66 U/l (0-40); AST/SGOT 111 U/l (0-37); Albumin/Globulin Ratio 0.9 (1.0-2.3); Alkaline Phosphatase 223 U/L (39-117); Bilirubin,Direct 0.4 mg/dL (0.0-0.3); Bilirubin,Total 0.9 mg/dL (0.0-1.0); Blood Urea Nitrogen 5 mg/dl (6-20); Calcium 8.5 mg/dl (8.6-10.4); Carbon Dioxide 24 mmol/L (22-30); Chloride 93 mmol/L (96-108); Globulin 3.3 gm/dL (2.2-3.7); Glomerular Filtration Rate 128; Glucose 90 mg/dL (70-105); Lactate Dehydrogenase 385 U/L (94-250); Triglycerides 145 mg/dl (<150); Uric Acid 5.3 mg/dL (2.5-8.0)
[2019-10-20] MEDS: POTASSIUM CHLORIDE 20 MEQ TABLET PO SCH ×2 (07:29→17:28)
[2019-10-20] MEDS: PANTOPRAZOLE 40 MG VIAL IV SCH (07:29)
[2019-10-20] MEDS: FUROSEMIDE 40 MG TABLET PO SCH ×2 (07:29→16:02)
[2019-10-20] MEDS: ACETAMINOPHEN 650 MG/65 ML BOTTLE IV PRN ×3 (07:29→21:03)
[2019-10-20 07:55] LABS: Band Neutrophils % 1 % (0-10); Eosinophils % (Manual) 4 % (0-7); Lymphocytes % 11 % (15-49); Macrocytosis 2+ (NONE SEEN); Metamyelocytes % 1 % (0-0); Monocytes % (Manual) 7 % (1-12); Platelet Estimate NORMAL (NORMAL); Polychromasia 1+ (NONE SEEN); RBC Morphology ABNORM (NORMAL); Reactive Lymphocytes 1 % (0-2); Segmented Neutrophils % 75 % (38-78)
[2019-10-20] MEDS: BUDESONIDE 0.5 MG/2 ML AMPUL.NEB NEB SCH ×2 (08:12→20:41)
--- NOTE | 2019-10-20 09:15 | Internal Med Progress Note ---
Medical - PN: Subj Patient information: Note initiated : 10/20/19 at 9:12 am Service Date, if different from initiated Date: [] Patient: Moises Royal a 38 y/o M admitted on 10/16/19 for mid abd pain. Chief Complaint: [] Interval history: Mr. Royal is a 38 year old M with history of chronic IV drug use/COPD, hype rtension/hepatitis C who presents to the ER with 2 days onset of worsening abdominal pain described as 6 out of 10-10 out of 10 epigastric with radiation to the back associated with nausea vomiting. Patient consumes alcohol intermittently. He denies associated fever, chills, diarrhea, dysuria, headache, photophobia. Initial work-up in the ER was consistent with severe pancreatitis and CT/elevat ed lipase/tachycardia tachypnea elevated white count. Elevated [place] 2 score of 15. Patient started on aggressive crystalloid/pain medications Hospitalist service was consulted At the time evaluation patient is lethargic fatigue and drowsy under effect of IV opioids. He was able to answer some of the questions. He endorses 10 out of 10 pain. Recent alcohol use 2 days ago. Active smoker. Lives with mother. Denies new medications. 10/16-white count of 20,000. Persistent abdominal pain requiring hourly opioids. Status post 5 L crystalloid since admission. Keep n.p.o. Tachycardic at 130. Elevated LDH. Close monitoring for complications. Repeat CT if evidence of worsening pancreatitis to rule out hemorrhage/necrosis. Lipase down to 600. 10/17-patient showing signs of alcohol withdrawal. Worsening pancreatitis with elevated CRP. Remains tachycardic around 130s to 140s. Now hypoxia requiring 3 days oxygen. Stat chest x-ray. Continue CIWA protocol. Remains delirious and confused. On 3 days oxygen. Distended abdomen. Improving urinary output. White count 20,900. LDH downtrending, creatinine 0.6. Continues to remain critically ill. Start Dobbhoff tube feeding today at a slow rate. 10/18-patient on conservative management with aggressive crystalloid/analgesics. White count down to 14,000. CRP downtrending now at 27. Lipase downtrending from 1200->66. Clinical improvement noted. On enteral tube feeds via Dobbhoff. Sodium 131, phosphorus down to 1.1 on replacement. 10/19-patient clinically improving. White count downtrending. Abdominal pain improving. On tube feeds advancing to goal. Continues oxygen. Starting to diurese. Stable hemodynamics. Phosphorus up at 2. Sodium 132, LFTs elevated - Constitutional Vitals: Vital Signs Temp Pulse Resp BP Pulse Ox 98.4 F 117 H 16 113/80 93 10/20/19 08:02 10/20/19 08:14 10/20/19 08:14 10/20/19 08:03 10/20/19 08:15 Period Temp Pulse Resp BP Sys/Campos Pulse Ox Last 24 Hr 97.5 F-98.7 F 117-117 11-22 113-159/80-123 87-96 Intake and Output 10/19/19 10/20/19 10/20/19 21:59 05:59 13:59 Intake Total 977 403 65 Output Total 2625 975 Balance -1648 -572 65 Weight 242 lb Intake & Output: Intake & Output 10/19/19 10/20/19 10/20/19 21:59 05:59 13:59 Intake Total 977 403 65 Output Total 2625 975 Balance -1648 -572 65 Weight 242 lb Intake: IV 65 65 65 Oral 480 120 Tube Feeding 372 158 GI Tube Flush 60 60 Output: Urine Catheter Amount 750 Void Amount 2625 225 Other: Urine Appearance Clear Clear Urine Color Dark Yellow Dark Yellow Stool Size Small Stool Color Brown Stool Consistency Loose # Voids 1 # Bowel Movements 1 General appearance: moderate distress Exam: Distended abdomen Nonlabored breathing Improving anxiety Tachycardia on telemetry No lymphedema Medical - PN: Obj Da - Labs CBC & Chem 7: 10/20/19 04:42 10/20/19 04:42 Labs: Abnormal Lab Results 10/20/19 10/20/19 10/19/19 04:42 04:42 04:45 WBC RBC 3.48 L Hgb 12.5 L Hct 37.8 L MCV 108.6 H MCH 35.9 H MPV Seg Neutrophils % Lymphocytes % 11 L Metamyelocytes % 1 H RBC Morphology Abnorm A Polychromasia 1+ A Anisocytosis Macrocytosis 2+ A Sodium 132 L Chloride 93 L Carbon Dioxide BUN 5 L Creatinine 0.6 L Glucose Calcium 8.5 L Phosphorus 2.0 L Direct Bilirubin 0.4 H GGT 330 H AST 111 H ALT 66 H Alkaline Phosphatase 223 H Lactate Dehydrogenase 385 H C-Reactive Protein 27.4 H Albumin 3.0 L Albumin/Globulin Ratio 0.9 L Lipase 10/19/19 10/19/19 10/18/19 04:45 04:45 04:39 WBC 14.4 H RBC 3.36 L Hgb 12.3 L Hct 37.3 L MCV 111.0 H MCH 36.6 H MPV Seg Neutrophils % 79 H Lymphocytes % 10 L Metamyelocytes % RBC Morphology Abnorm A Polychromasia 1+ A Anisocytosis Macrocytosis 2+ A Sodium 131 L Chloride Carbon Dioxide 20 L BUN 5 L Creatinine 0.6 L Glucose Calcium 8.5 L Phosphorus 1.1 L Direct Bilirubin 0.5 H GGT 240 H AST 56 H ALT Alkaline Phosphatase 166 H Lactate Dehydrogenase 392 H C-Reactive Protein 34.5 H Albumin 2.8 L Albumin/Globulin Ratio 0.8 L Lipase 66 H 10/18/19 10/18/19 10/17/19 04:39 04:39 15:32 WBC 20.9 H RBC 3.61 L Hgb 13.1 L Hct MCV 112.2 H MCH 36.3 H MPV 10.5 H Seg Neutrophils % 94 H Lymphocytes % 3 L Metamyelocytes % RBC Morphology Abnorm A Polychromasia Anisocytosis Macrocytosis 2+ A Sodium Chloride Carbon Dioxide 17 L 20 L BUN Creatinine 0.6 L Glucose 62 L Calcium 8.2 L 8.3 L Phosphorus 2.0 L 1.3 L Direct Bilirubin 0.6 H 0.5 H GGT 239 H 257 H AST ALT Alkaline Phosphatase 128 H Lactate Dehydrogenase 354 H 382 H C-Reactive Protein Albumin 3.1 L Albumin/Globulin Ratio Lipase 144 H 10/17/19 10/17/19 15:32 11:45 WBC 20.4 H RBC 3.91 L Hgb Hct MCV 107.2 H MCH 35.8 H MPV Seg Neutrophils % 90 H Lymphocytes % 6 L Metamyelocytes % RBC Morphology Abnorm A Polychromasia Anisocytosis 1+ A Macrocytosis 1+ A Sodium Chloride Carbon Dioxide BUN Creatinine Glucose Calcium Phosphorus Direct Bilirubin GGT AST ALT Alkaline Phosphatase Lactate Dehydrogenase C-Reactive Protein 25.3 H Albumin Albumin/Globulin Ratio Lipase Meds: Medications Acetaminophen (Tylenol) 650 mg PO Q4-6HP PRN; Protocol PRN Reason: Per Pain Protocol/Fever > 101 Albuterol Sulfate (Ventolin) 2 puff INH Q4-6HP PRN PRN Reason: shortness of breath/wheezing Albuterol/Ipratropium (Duoneb) 3 ml NEB Q4HP PRN PRN Reason: Shortness Of Breath Last Admin: 10/20/19 06:07 Dose: 3 ml Documented by: Bisacodyl (Dulcolax) 10 mg [place] Q2-3DAYS PRN PRN Reason: Constipation Budesonide (Pulmicort) 0.5 mg NEB Q12 [facility] Last Admin: 10/20/19 08:12 Dose: 0.5 mg Documented by: Bupropion HCl (Wellbutrin) 100 mg PO TID [facility] Last Admin: 10/19/19 20:45 Dose: 100 mg Documented by: Chlorhexidine Gluconate (Peridex) 15 ml SWABMOUTH BID [facility] Last Admin: 10/19/19 20:28 Dose: 15 ml Documented by: Clonidine HCl (Catapres) 0.1 mg PO DAILY [facility] Last Admin: 10/19/19 09:40 Dose: 0.1 mg Documented by: Diazepam (Valium) 10 mg IV Q2HP PRN PRN Reason: Alcohol Withdrawal Docusate Sodium (Colace) 100 mg PO BID [facility] Last Admin: 10/19/19 20:27 Dose: 100 mg Documented by: Fluoxetine HCl (Prozac) 20 mg PO QDAY [facility] Last Admin: 10/19/19 09:40 Dose: 20 mg Documented by: Furosemide (Lasix) 40 mg PO BIDD [facility] Last Admin: 10/20/19 07:29 Dose: 40 mg Documented by: Gabapentin (Neurontin) 300 mg PO BID [facility] Last Admin: 10/19/19 20:27 Dose: 300 mg Documented by: Heparin Sodium (Porcine) (Heparin) 5,000 unit SQ Q12 [facility] Last Admin: 10/19/19 20:27 Dose: 5,000 unit Documented by: Hydromorphone HCl (Dilaudid) 0 mg IV Q1HP PRN; Protocol PRN Reason: Per Pain Protocol Last Admin: 10/20/19 04:40 Dose: 0.5 mg Documented by: Acetaminophen (Ofirmev) 650 mg in 65 mls @ 130 mls/hr IV Q6HP PRN; Protocol PRN Reason: Per Pain Protocol/Fever > 101 Last Infusion: 10/20/19 08:00 Dose: Infused Documented by: Potassium Chloride 40 meq/ (Dextrose) 520 mls @ 130 mls/hr IV UD PRN PRN Reason: K+ = or < 3.5 Last Infusion: 10/17/19 16:15 Dose: Infused Documented by: Magnesium Sulfate (Magnesium Sulfate) 2 gm in 50 mls @ 50 mls/hr IV UD PRN PRN Reason: MG = or < 1.7 Iron Carb/Multivit/[place]/Folic Acid (Multivitamin W/Minerals) 1 tab PO DAILY [facility] Last Admin: 10/19/19 09:41 Dose: 1 tab Documented by: Lorazepam (Ativan) 0.5 mg IV Q4HP PRN PRN Reason: ANXIETY/SEDATION Last Admin: 10/20/19 05:23 Dose: 0.5 mg Documented by: Metoprolol Succinate (Toprol Xl) 25 mg PO QDAY [facility] Last Admin: 10/19/19 09:40 Dose: 25 mg Documented by: Metoprolol Tartrate (Lopressor) 5 mg IV Q5M PRN PRN Reason: Tachyarrhythmias Last Admin: 10/17/19 22:47 Dose: 5 mg Documented by: Nicotine (Nicoderm) 21 mg TOPICAL DAILY@1000 [facility] Last Admin: 10/19/19 10:28 Dose: 21 mg Documented by: Ondansetron HCl (Zofran Odt) 4 mg SL Q4-6HP PRN; Protocol PRN Reason: Nausea And Vomiting Last Admin: 10/19/19 21:32 Dose: 4 mg Documented by: Ondansetron HCl (Zofran) 4 mg IV Q4-6HP PRN; Protocol PRN Reason: Nausea And Vomiting Last Admin: 10/19/19 16:30 Dose: 4 mg Documented by: Pantoprazole Sodium (Protonix) 40 mg IV QAMAC [facility] Last Admin: 10/20/19 07:29 Dose: 40 mg Documented by: Budesonide/Formoterol Fumarate [Symbicort] 160-4.5 Mcg Inhaler 2 dose INH BIDP PRN PRN Reason: Shortness Of Breath Polyethylene Glycol (Miralax) 17 gm PO DAILYP PRN PRN Reason: Constipation Potassium Chloride (Kdur) 20 meq PO BIDCC [facility] Last Admin: 10/20/19 07:29 Dose: 20 meq Documented by: Potassium/Phosphorus/Sodium (Neutra Phos) 2 packet PO BIDP PRN PRN Reason: Phosphorus less than 2.6 Last Admin: 10/19/19 10:28 Dose: 2 packet Documented by: Promethazine HCl (Phenergan) 0 mg IV Q4HP PRN PRN Reason: Nausea And Vomiting Last Admin: 10/18/19 16:53 Dose: 12.5 mg Documented by: Senna/Docusate Sodium (Senna Plus Tablet) 1 tab PO HS [facility] Last Admin: 10/19/19 20:27 Dose: 1 tab Documented by: Sodium Chloride (Saline Flush) 10 ml IV Q8 [facility] Last Admin: 10/20/19 04:35 Dose: Not Given Documented by: Tamsulosin HCl (Flomax) 0.4 mg PO QHS [facility] Last Admin: 10/19/19 20:27 Dose: 0.4 mg Documented by: Thiamine HCl (Vitamin B1) 100 mg PO DAILY [facility] Last Admin: 10/19/19 09:40 Dose: 100 mg Documented by: Medical - PN: A/P - Time Spent With Patient Total time spent is greater than 50% in coordination of care (as documented) at patient's floor/unit and/or counseling patient: 25 - 35 minutes (1) Pancreatitis Status: Acute Assessment and plan: * Severe pancreatitis with multiorgan dysfunction. Gradually improving, stabilize hemodynamics. Continue enteral nutrition, pain management. * Low phosphorus on replacement * Hypoxic respiratory failure -on 3 L oxygen. Off IV fluids. Continue to diuresis. Chest x-ray basilar atelectasis. Use incentive spirometer * Alcohol withdrawal improving CIWA scores. Minimize benzodiazepine. Continue multivitamin/thiamine * Abdominal pain secondary to pancreatitis clinically improving. On IV opioids. * History of hypertension -systolics at goal. Continue metoprolol/clonidine and as needed hydralazine * History of IV drug use/opioid dependence currently on Suboxone. Held in light of severe pain requiring opioids * Anxiety disorder continue as needed IV anxiolytics * History of COPD continue bronchodilators * Full code * Prophylaxis heparin Plan * Continue Dobbhoff feeding/conservative management * Phosphorus replacement * Pain management * Pre-existing medical condition management home medications * Discharge planning possibly in 24 to 48 hours Current Visit: Yes
[2019-10-20] MEDS: DOCUSATE SODIUM 100 MG CAPSULE PO SCH ×2 (09:35→21:04)
[2019-10-20] MEDS: buPROPion 100 MG TABLET PO SCH ×3 (09:46→21:02)
[2019-10-20] MEDS: MULTIVIT,THER IRON,CA,FA & MIN 1 TABLET PO SCH (09:47)
[2019-10-20] MEDS: GABAPENTIN 300 MG CAPSULE PO SCH ×2 (09:47→21:02)
[2019-10-20] MEDS: METOPROLOL SUCCINATE 25 MG TAB.XL.24H PO SCH (09:47)
[2019-10-20] MEDS: NEUTRA PHOS 1 PACKET PO PRN ×2 (09:47→21:43)
[2019-10-20] MEDS: HEPARIN 5,000 UNIT/ML VIAL SQ SCH ×2 (09:47→21:02)
[2019-10-20] MEDS: THIAMINE 100 MG TABLET PO SCH (09:47)
[2019-10-20] MEDS: FLUoxetine HCL 20 MG CAPSULE PO SCH (09:47)
[2019-10-20] MEDS: cloNIDine HCL 0.1 MG TABLET PO SCH (09:47)
[2019-10-20] MEDS: NICOTINE 21 MG PATCH TOPICAL SCH (09:48)
[2019-10-20] MEDS: CHLORHEXIDINE GLUCONATE 1 ML ORAL.SOL SWABMOUTH SCH ×2 (09:48→21:04)
[2019-10-20] MEDS: ONDANSETRON 4 MG ODT TABLET SL PRN (17:29)
[2019-10-20] MEDS: TAMSULOSIN 0.4 MG CAPSULE PO SCH (21:02)
[2019-10-20] MEDS: SENNOSIDES/DOCUSATE SODIUM 1 TAB TABLET PO SCH (21:04)
[2019-10-21] MEDS: HYDROmorphone 0.5 MG/0.5 ML SYRINGE IV PRN ×6 (00:20→11:01)
[2019-10-21] MEDS: 0.9 % SODIUM CHLORIDE 10 ML SYRINGE IV SCH ×4 (00:21→20:34)
[2019-10-21] MEDS: ACETAMINOPHEN 650 MG/65 ML BOTTLE IV PRN ×2 (03:00→11:01)
[2019-10-21] MEDS: ONDANSETRON 4 MG ODT TABLET SL PRN (03:00)
[2019-10-21 06:27] LABS: Hematocrit 35.7 % (40.1-51.0); Hemoglobin 11.9 g/dL (13.7-17.5); Mean Cell Volume 108.5 fL (80.0-100.0); Mean Corpuscular HGB Conc 33.3 g/dL (31.0-36.0); Mean Platelet Volume 10.3 fL (7.4-10.4); Platelet Count 239 K/mcL (140-440); RBC 3.29 M/mcL (4.63-6.08); Red Cell Distribution Width 12.7 % (11.5-14.5); WBC 8.2 K/mcL (4.50-11.00)
[2019-10-21 07:12] LABS: ALT/SGPT 93 U/l (0-40); AST/SGOT 133 U/l (0-37); Albumin 2.8 gm/dL (3.2-5.2); Albumin/Globulin Ratio 0.8 (1.0-2.3); Alkaline Phosphatase 223 U/L (39-117); Bilirubin,Direct 0.4 mg/dL (0.0-0.3); Bilirubin,Total 0.7 mg/dL (0.0-1.0); Calcium 8.6 mg/dl (8.6-10.4); Carbon Dioxide 26 mmol/L (22-30); Chloride 96 mmol/L (96-108); Globulin 3.3 gm/dL (2.2-3.7); Glomerular Filtration Rate 128; Glucose 98 mg/dL (70-105); Lactate Dehydrogenase 309 U/L (94-250); Triglycerides 134 mg/dl (<150); Uric Acid 5.6 mg/dL (2.5-8.0)
[2019-10-21 07:13] LABS: Blood Urea Nitrogen 7 mg/dl (6-20); Phosphorous 2.6 mg/dL (2.7-4.5)
[2019-10-21] MEDS: PANTOPRAZOLE 40 MG VIAL IV SCH (07:20)
[2019-10-21] MEDS: BUDESONIDE 0.5 MG/2 ML AMPUL.NEB NEB SCH ×2 (08:56→21:20)
[2019-10-21 09:03] LABS: Band Neutrophils % 3 % (0-10); Eosinophils % (Manual) 5 % (0-7); Lymphocytes % 15 % (15-49); Macrocytosis 2+ (NONE SEEN); Metamyelocytes % 2 % (0-0); Monocytes % (Manual) 11 % (1-12); Myelocytes % 2 % (0-0); Platelet Estimate NORMAL (NORMAL); Polychromasia 1+ (NONE SEEN); RBC Morphology ABNORM (NORMAL); Segmented Neutrophils % 62 % (38-78)
[2019-10-21] MEDS: MULTIVIT,THER IRON,CA,FA & MIN 1 TABLET PO SCH (09:44)
[2019-10-21] MEDS: FLUoxetine HCL 20 MG CAPSULE PO SCH (09:44)
[2019-10-21] MEDS: POTASSIUM CHLORIDE 40 MEQ in DEXTROSE 5% IN WATER 500 ML IV PRN (09:44)
[2019-10-21] MEDS: POTASSIUM CHLORIDE 20 MEQ TABLET PO SCH ×2 (09:44→16:40)
[2019-10-21] MEDS: buPROPion 100 MG TABLET PO SCH ×3 (09:46→20:34)
[2019-10-21] MEDS: THIAMINE 100 MG TABLET PO SCH (09:46)
[2019-10-21] MEDS: cloNIDine HCL 0.1 MG TABLET PO SCH (09:46)
[2019-10-21] MEDS: HEPARIN 5,000 UNIT/ML VIAL SQ SCH ×2 (09:46→20:34)
[2019-10-21] MEDS: GABAPENTIN 300 MG CAPSULE PO SCH ×2 (09:46→20:34)
[2019-10-21] MEDS: FUROSEMIDE 40 MG TABLET PO SCH ×2 (09:47→16:40)
[2019-10-21] MEDS: DOCUSATE SODIUM 100 MG CAPSULE PO SCH ×2 (09:47→20:34)
[2019-10-21] MEDS: CHLORHEXIDINE GLUCONATE 1 ML ORAL.SOL SWABMOUTH SCH ×2 (09:47→20:33)
[2019-10-21] MEDS: METOPROLOL SUCCINATE 25 MG TAB.XL.24H PO SCH (09:47)
[2019-10-21] MEDS: NICOTINE 21 MG PATCH TOPICAL SCH (11:01)
--- NOTE | 2019-10-21 11:36 | Internal Med Progress Note ---
SUBJECTIVE Subjective Patient information: Note initiated : 10/21/19 at 9:24 am Service Date, if different from initiated Date: [] Patient: Moises Royal a 38 y/o M admitted on 10/16/19 for mid abd pain. Chief Complaint: Interval history: Mr. Royal is a 38 year old M with history of chronic IV drug use/COPD, hypertension/hepatitis C who presents to the ER with 2 days onset of worsening abdominal pain described as 6 out of 10-10 out of 10 epigastric with radiation to the back associated with nausea vomiting. Patient consumes alcohol intermittently. He denies associated fever, chills, diarrhea, dysuria, headache, photophobia. Initial work-up in the ER was consistent with severe pancreatitis and CT/elevated lipase/tachycardia tachypnea elevated white count. Elevated [place] 2 score of 15. Patient started on aggressive crystalloid/pain medications Hospitalist service was consulted At the time evaluation patient is lethargic fatigue and drowsy under effect of IV opioids. He was able to answer some of the questions. He endorses 10 out of 10 pain. Recent alcohol use 2 days ago. Active smoker. Lives with mother. Denies new medications. 10/16-white count of 20,000. Persistent abdominal pain requiring hourly opioids. Status post 5 L crystalloid since admission. Keep n.p.o. Tachycardic at 130. Elevated LDH. Close monitoring for complications. Repeat CT if evidence of worsening pancreatitis to rule out hemorrhage/necrosis. Lipase down to 600. 10/17-patient showing signs of alcohol withdrawal. Worsening pancreatitis with elevated CRP. Remains tachycardic around 130s to 140s. Now hypoxia requiring 3 days oxygen. Stat chest x-ray. Continue CIWA protocol. Remains delirious and confused. On 3 days oxygen. Distended abdomen. Improving urinary output. White count 20,900. LDH downtrending, creatinine 0.6. Continues to remain critically ill. Start Dobbhoff tube feeding today at a slow rate. 10/18-patient on conservative management with aggressive crystalloid/analgesics. White count down to 14,000. CRP downtrending now at 27. Lipase downtrending from 1200->66. Clinical improvement noted. On enteral tube feeds via Dobbhoff. Sodium 131, phosphorus down to 1.1 on replacement. 10/19-patient clinically improving. White count downtrending. Abdominal pain improving. On tube feeds advancing to goal. Continues oxygen. Starting to diurese. Stable hemodynamics. Phosphorus up at 2. Sodium 132, LFTs elevated 10/20-patient doing a lot better.White count normalized to 8.2. Lipase normalized. CRP downtrending. LFTs slightly elevated and previous day. Phosphorus normalized. Transition to oral liquids and low-fat diet as tolerated. Tube feeds at 30 cc/h. Possible discharge in 24 hours if continues to improve clinically. Constitutional Vitals: Vital Signs Temp Pulse Resp BP Pulse Ox 97.5 F 113 H 13 128/84 92 10/21/19 07:01 10/20/19 20:48 10/21/19 08:01 10/21/19 08:01 10/21/19 09:00 Period Temp Pulse Resp BP Sys/Campos Pulse Ox Last 24 Hr 97.1 F-98.6 F 113-117 10-33 111-134/73-97 86-96 Intake and Output 10/20/19 10/21/19 10/21/19 21:59 05:59 13:59 Intake Total 441 746 Output Total 2425 700 350 -1983 46 -350 Weight 105.914 kg Doing well nonlabored breathing Tachycardia resolved No anxiety Distended but nontender abdomen Intake & Output: Intake & Output 10/20/19 10/21/19 10/21/19 21:59 05:59 13:59 Intake Total 441 746 Output Total 2425 700 350 Balance -1983 46 -350 Weight 105.914 kg Intake: IV 130 65 Oral 360 Tube Feeding 221 261 GI Tube Flush 90 60 Output: Void Amount 2425 500 350 Stool 200 Other: Urine Appearance Clear Clear Urine Color Bright Yellow Dark Yellow Stool Size Moderate Large Stool Color Brown Brown Brown Stool Consistency Liquid Liquid Liquid OBJ DATA Labs CBC & Chem 7: 10/21/19 05:04 10/21/19 05:04 Labs: Abnormal Lab Results 10/21/19 10/21/19 10/20/19 05:04 05:04 04:42 WBC RBC 3.29 L Hgb 11.9 L Hct 35.7 L MCV 108.5 H MCH 36.2 H Seg Neutrophils % Lymphocytes % Metamyelocytes % 2 H Myelocytes % 2 H RBC Morphology Abnorm A Polychromasia 1+ A Macrocytosis 2+ A Sodium 132 L Chloride 93 L Carbon Dioxide BUN 5 L Creatinine 0.6 L 0.6 L Calcium 8.5 L Phosphorus 2.6 L 2.0 L Direct Bilirubin 0.4 H 0.4 H GGT 370 H 330 H AST 133 H 111 H ALT 93 H 66 H Alkaline Phosphatase 223 H 223 H Lactate Dehydrogenase 309 H 385 H C-Reactive Protein Albumin 2.8 L 3.0 L Albumin/Globulin Ratio 0.8 L 0.9 L Lipase 10/20/19 10/19/19 10/19/19 04:42 04:45 04:45 WBC RBC 3.48 L Hgb 12.5 L Hct 37.8 L MCV 108.6 H MCH 35.9 H Seg Neutrophils % Lymphocytes % 11 L Metamyelocytes % 1 H Myelocytes % RBC Morphology Abnorm A Polychromasia 1+ A Macrocytosis 2+ A Sodium 131 L Chloride Carbon Dioxide 20 L BUN 5 L Creatinine 0.6 L Calcium 8.5 L Phosphorus 1.1 L Direct Bilirubin 0.5 H GGT 240 H AST 56 H ALT Alkaline Phosphatase 166 H Lactate Dehydrogenase 392 H C-Reactive Protein 27.4 H Albumin 2.8 L Albumin/Globulin Ratio 0.8 L Lipase 66 H 10/19/19 04:45 WBC 14.4 H RBC 3.36 L Hgb 12.3 L Hct 37.3 L MCV 111.0 H MCH 36.6 H Seg Neutrophils % 79 H Lymphocytes % 10 L Metamyelocytes % Myelocytes % RBC Morphology Abnorm A Polychromasia 1+ A Macrocytosis 2+ A Sodium Chloride Carbon Dioxide BUN Creatinine Calcium Phosphorus Direct Bilirubin GGT AST ALT Alkaline Phosphatase Lactate Dehydrogenase C-Reactive Protein Albumin Albumin/Globulin Ratio Lipase Meds: Medications Acetaminophen (Tylenol) 650 mg PO Q4-6HP PRN; Protocol PRN Reason: Per Pain Protocol/Fever > 101 Albuterol Sulfate (Ventolin) 2 puff INH Q4-6HP PRN PRN Reason: shortness of breath/wheezing Albuterol/Ipratropium (Duoneb) 3 ml NEB Q4HP PRN PRN Reason: Shortness Of Breath Last Admin: 10/20/19 06:07 Dose: 3 ml Documented by: Bisacodyl (Dulcolax) 10 mg NH Q2-3DAYS PRN PRN Reason: Constipation Budesonide (Pulmicort) 0.5 mg NEB Q12 [facility] Last Admin: 10/21/19 08:56 Dose: 0.5 mg Documented by: Bupropion HCl (Wellbutrin) 100 mg PO TID [facility] Last Admin: 10/20/19 21:02 Dose: 100 mg Documented by: Chlorhexidine Gluconate (Peridex) 15 ml SWABMOUTH BID [facility] Last Admin: 10/20/19 21:04 Dose: 15 ml Documented by: Clonidine HCl (Catapres) 0.1 mg PO DAILY [facility] Last Admin: 10/20/19 09:47 Dose: 0.1 mg Documented by: Diazepam (Valium) 10 mg IV Q2HP PRN PRN Reason: Alcohol Withdrawal Docusate Sodium (Colace) 100 mg PO BID [facility] Last Admin: 10/20/19 21:04 Dose: Not Given Documented by: Fluoxetine HCl (Prozac) 20 mg PO QDAY [facility] Last Admin: 10/20/19 09:47 Dose: 20 mg Documented by: Furosemide (Lasix) 40 mg PO BIDD [facility] Last Admin: 10/20/19 16:02 Dose: 40 mg Documented by: Gabapentin (Neurontin) 300 mg PO BID [facility] Last Admin: 10/20/19 21:02 Dose: 300 mg Documented by: Heparin Sodium (Porcine) (Heparin) 5,000 unit SQ Q12 [facility] Last Admin: 10/20/19 21:02 Dose: 5,000 unit Documented by: Hydromorphone HCl (Dilaudid) 0 mg IV Q1HP PRN; Protocol PRN Reason: Per Pain Protocol Last Admin: 10/21/19 05:15 Dose: 0.5 mg Documented by: Acetaminophen (Ofirmev) 650 mg in 65 mls @ 130 mls/hr IV Q6HP PRN; Protocol PRN Reason: Per Pain Protocol/Fever > 101 Last Infusion: 10/21/19 03:35 Dose: Infused Documented by: Potassium Chloride 40 meq/ (Dextrose) 520 mls @ 130 mls/hr IV UD PRN PRN Reason: K+ = or < 3.5 Last Infusion: 10/17/19 16:15 Dose: Infused Documented by: Magnesium Sulfate (Magnesium Sulfate) 2 gm in 50 mls @ 50 mls/hr IV UD PRN PRN Reason: MG = or < 1.7 Iron Carb/Multivit/Rienzi/Folic Acid (Multivitamin W/Minerals) 1 tab PO DAILY [facility] Last Admin: 10/20/19 09:47 Dose: 1 tab Documented by: Lorazepam (Ativan) 0.5 mg IV Q4HP PRN PRN Reason: ANXIETY/SEDATION Last Admin: 10/20/19 10:40 Dose: 0.5 mg Documented by: Metoprolol Succinate (Toprol Xl) 25 mg PO QDAY [facility] Last Admin: 10/20/19 09:47 Dose: 25 mg Documented by: Metoprolol Tartrate (Lopressor) 5 mg IV Q5M PRN PRN Reason: Tachyarrhythmias Last Admin: 10/17/19 22:47 Dose: 5 mg Documented by: Nicotine (Nicoderm) 21 mg TOPICAL DAILY@1000 [facility] Last Admin: 10/20/19 09:48 Dose: 21 mg Documented by: Ondansetron HCl (Zofran Odt) 4 mg SL Q4-6HP PRN; Protocol PRN Reason: Nausea And Vomiting Last Admin: 10/21/19 03:00 Dose: 4 mg Documented by: Ondansetron HCl (Zofran) 4 mg IV Q4-6HP PRN; Protocol PRN Reason: Nausea And Vomiting Last Admin: 10/19/19 16:30 Dose: 4 mg Documented by: [facility]oprazole [facility]) [facility] Admin: 10/20/19 07:29 Dose: 40 mg Documented by: Budesonide/Formoterol Fumarate [Symbicort] 160-4.5 Mcg Inhaler 2 dose INH BIDP PRN PRN Reason: Shortness Of Breath Polyethylene Glycol (Miralax) 17 gm PO DAILYP PRN PRN Reason: Constipation Potassium Chloride (Kdur) 20 meq PO BIDCC [facility] Last Admin: 10/20/19 17:28 Dose: 20 meq Documented by: Potassium/Phosphorus/Sodium (Neutra Phos) 2 packet PO BIDP PRN PRN Reason: Phosphorus less than 2.6 Last Admin: 10/20/19 21:43 Dose: 2 packet Documented by: Promethazine HCl (Phenergan) 0 mg IV Q4HP PRN PRN Reason: Nausea And Vomiting Last Admin: 10/18/19 16:53 Dose: 12.5 mg Documented by: Senna/Docusate Sodium (Senna Plus Tablet) 1 tab PO [facility] Last Admin: 10/20/19 21:04 Dose: Not Given Documented by: Sodium Chloride (Saline Flush) 10 ml IV Q8 [facility] Last Admin: 10/21/19 05:15 Dose: 10 ml Documented by: Tamsulosin HCl (Flomax) 0.4 mg PO QHS [facility] Last Admin: 10/20/19 21:02 Dose: 0.4 mg Documented by: Thiamine HCl (Vitamin B1) 100 mg PO DAILY [facility] Last Admin: 10/20/19 09:47 Dose: 100 mg Documented by: A/P Assessment and plan (1) Pancreatitis: Status: Acute Time Spent With Patient Time: Severe pancreatitis with multiorgan dysfunction. No CT evidence of hemorrhage/necrosis or pseudocyst. Clinical improvement noted over the last 48 hours. Stable hemodynamics. Start liquid diet advance to low-fat Low phosphorus resolved with replacement replacement Hypoxic respiratory failure -resolved. Now on 2 L oxygen. Starting to diurese well. Aggressive incentive spirometer use. Alcohol withdrawal improving CIWA scores. Minimize benzodiazepine. Continue multivitamin/thiamine Abdominal pain secondary to pancreatitis clinically improving. On IV opioids. History of hypertension -systolics at goal. Continue metoprolol/clonidine and as needed hydralazine History of IV drug use/opioid dependence currently on Suboxone. Held in light of severe pain requiring opioids Anxiety disorder continue as needed IV anxiolytics History of COPD continue bronchodilators Full code Prophylaxis heparin Plan Start full liquid diet and advanced to low-fat electrolyte replacement as indicated Continue pain management Pre-existing medical condition management home medications Possible discharge in 24 hours Total time spent is greater than 50% in coordination of care (as documented) at patient's floor/unit and/or counseling patient: 30 minutes
[2019-10-21] MEDS: HYDROmorphone 2 MG TABLET PO PRN ×3 (12:16→20:33)
[2019-10-21] MEDS: NEUTRA PHOS 1 PACKET PO PRN (12:18)
[2019-10-21] MEDS: LORazepam 0.5 MG TABLET PO PRN ×2 (13:16→19:17)
--- NOTE | 2019-10-21 13:33 | Discharge Summary ---
Discharge Provider Provider Patient information: Note initiated : 10/21/19 at 1:28 pm Service Date, if different from initiated Date: [] Patient: Moises Royal 38 y/o M admitted on 10/16/19 for mid abd pain. Chief Complaint: [] Date of admission: 10/16/19 18:45 Discharge date: 10/22/19 Primary care physician: Fracisco Canseco Consults: 10/16/19 Consult to Physician [CONS] Stat Comment: Consulting Provider: Wiliam Irene Reason For Exam: Physician to Consult Discharge Meds Discharge Medications Active and Home Medications: Home Medications cyclobenzaprine 10 mg tablet 10 mg PO Q8H PRN #90 tab 05/26/19 [Rx Confirmed 10/17/19 Last Taken Unknown] ProAir HFA 90 mcg/actuation aerosol inhaler 2 puff INHALATION .Q4-6H PRN #8.5 g NS 07/27/19 [Rx Confirmed 10/17/19 Last Taken Unknown] tamsulosin 0.4 mg capsule 0.4 mg PO QHS #30 cap 09/08/19 [Rx Confirmed 10/17/19 Last Taken Unknown] furosemide 40 mg tablet 40 mg PO BID #60 tab 09/16/19 [Rx Confirmed 10/17/19 Last Taken Unknown] fluoxetine 20 mg capsule 20 mg PO QDAY #30 cap 09/30/19 [Rx Confirmed 10/17/19 Last Taken Unknown] gabapentin 300 mg capsule 300 mg PO BID #60 cap 09/30/19 [Rx Confirmed 10/17/19 Last Taken Unknown] omeprazole 20 mg capsule,delayed release 20 mg PO QDAY #30 cap 09/30/19 [Rx Confirmed 10/17/19 Last Taken Unknown] buprenorphine 8 mg-naloxone 2 mg sublingual film 1 film SUBLINGUAL TID #90 each 10/06/19 [Rx Confirmed 10/17/19 Last Taken Unknown] metoprolol succinate 25 mg tablet,extended release 24 hr 25 mg PO QDAY #30 tab 10/06/19 [Rx Confirmed 10/17/19 Last Taken Unknown] potassium chloride 20 mEq tablet,extended release(part/cryst) 20 meq PO BID #60 tab 10/13/19 [Rx Confirmed 10/17/19 Last Taken Unknown] benzonatate 200 mg PO TID 10/17/19 [History Confirmed 10/17/19 Last Taken Unknown] budesonide-formoterol 2 puff PO BID PRN 10/17/19 [History Confirmed 10/17/19 Last Taken Unknown] bupropion HCl 1 tab PO TID 10/17/19 [History Confirmed 10/17/19 Last Taken Unknown] clonidine HCl 1 tab PO DAILY 10/17/19 [History Confirmed 10/17/19 Last Taken Unknown] dicyclomine 20 mg PO AC PRN 10/17/19 [History Confirmed 10/17/19 Last Taken Unknown] ondansetron 4 mg PO Q6-8HP PRN 10/17/19 [History Confirmed 10/17/19 Last Taken Unknown] COURSE Hospital Course Hospital Course: Mr. Royal is a 38 year old M with history of chronic IV drug use/COPD, hypertension/hepatitis C who presents to the ER with 2 days onset of worsening abdominal pain described as 6 out of 10-10 out of 10 epigastric with radiation to the back associated with nausea vomiting. Patient consumes alcohol intermittently. He denies associated fever, chills, diarrhea, dysuria, headache, photophobia. Initial work-up in the ER was consistent with severe pancreatitis and CT/elevated lipase/tachycardia tachypnea elevated white count. Elevated [place] 2 score of 15. Patient started on aggressive crystalloid/pain medications Hospitalist service was consulted At the time evaluation patient is lethargic fatigue and drowsy under effect of IV opioids. He was able to answer some of the questions. He endorses 10 out of 10 pain. Recent alcohol use 2 days ago. Active smoker. Lives with mother. Denies new medications. 10/16-white count of 20,000. Persistent abdominal pain requiring hourly opioids. Status post 5 L crystalloid since admission. Keep n.p.o. Tachycardic at 130. Elevated LDH. Close monitoring for complications. Repeat CT if evidence of worsening pancreatitis to rule out hemorrhage/necrosis. Lipase down to 600. 10/17-patient showing signs of alcohol withdrawal. Worsening pancreatitis with elevated CRP. Remains tachycardic around 130s to 140s. Now hypoxia requiring 3 days oxygen. Stat chest x-ray. Continue CIWA protocol. Remains delirious and confused. On 3 days oxygen. Distended abdomen. Improving urinary output. White count 20,900. LDH downtrending, creatinine 0.6. Continues to remain critically ill. Start Dobbhoff tube feeding today at a slow rate. 10/18-patient on conservative management with aggressive crystalloid/analgesics. White count down to 14,000. CRP downtrending now at 27. Lipase downtrending from 1200->66. Clinical improvement noted. On enteral tube feeds via Dobbhoff. Sodium 131, phosphorus down to 1.1 on replacement. 10/19-patient clinically improving. White count downtrending. Abdominal pain improving. On tube feeds advancing to goal. Continues oxygen. Starting to diurese. Stable hemodynamics. Phosphorus up at 2. Sodium 132, LFTs elevated 10/20-patient doing a lot better.White count normalized to 8.2. Lipase normalized. CRP downtrending. LFTs slightly elevated and previous day. Phosphorus normalized. Transition to oral liquids and low-fat diet as tolerated. Tube feeds at 30 cc/h. Possible discharge in 24 hours if continues to improve clinically. 10/21 Patient doing well, told to advance diet. No new complaints. Patient stable for discharge Severe pancreatitis with multiorgan dysfunction. Low phosphorus resolved with replacement replacement Hypoxic respiratory failure Alcohol withdrawal improving CIWA scores. Abdominal pain secondary to pancreatitis History of hypertension History of IV drug use/opioid dependence currently on Suboxone. Anxiety disorder continue as needed IV anxiolytics History of COPD continue bronchodilators Discharge diagnosis: pancreatitis Reason for admission: Alcohol withdrawal alcohol abuse hypertension anxiety COPD Time Spent with Patient Time attestation: Total time spent providing and/or coordinating discharge services: EXAM Constitutional Vitals: Temp Pulse Resp BP Pulse Ox 97.6 F 113 H 12 112/83 91 10/21/19 11:01 10/20/19 20:48 10/21/19 12:01 10/21/19 12:01 10/21/19 12:01 Discharge Data Data Completed and Pending Labs on day of discharge: Labs from last 24 hours 10/21/19 10/21/19 05:04 05:04 WBC 8.2 RBC 3.29 L Hgb 11.9 L Hct 35.7 L MCV 108.5 H MCH 36.2 H MCHC 33.3 RDW 12.7 Plt Count 239 MPV 10.3 Total Counted 100 Seg Neutrophils % 62 Band Neutrophils % 3 Lymphocytes % 15 Monocytes % (Manual) 11 Eosinophils % (Manual) 5 Metamyelocytes % 2 H Myelocytes % 2 H Platelet Estimate Normal RBC Morphology Abnorm A Polychromasia 1+ A Macrocytosis 2+ A Sodium 135 Potassium 3.3 Chloride 96 Carbon Dioxide 26 Anion Gap 13.0 BUN 7 Creatinine 0.6 L GFR Calculation 128 Glucose 98 Uric Acid 5.6 Calcium 8.6 Phosphorus 2.6 L Magnesium 2.2 Total Bilirubin 0.7 Direct Bilirubin 0.4 H GGT 370 H AST 133 H ALT 93 H Alkaline Phosphatase 223 H Lactate Dehydrogenase 309 H Total Protein 6.1 Albumin 2.8 L Globulin 3.3 Albumin/Globulin Ratio 0.8 L Triglycerides 134 Preliminary micro results at discharge 10/17/19 16:20 Blood Culture - Preliminary Blood 10/17/19 16:25 Blood Culture - Preliminary Blood Discharge Plan Patient/Caregiver Discharge Instructions Activity: increase activity as tolerated Diet: Low Fat Instructions: How to Stop Smoking (GEN), Pancreatitis (GEN), Alcohol Withdrawal (GEN) Activity Restrictions/Additional Instructions: no alcohol Prescriptions: Continued cyclobenzaprine 10 mg tablet 10 mg PO Q8H PRN (Reason: muscle spasm) Qty: 90 RF: 3 furosemide 40 mg tablet 40 mg PO BID Qty: 60 RF: 2 omeprazole 20 mg capsule,delayed release(DR/EC) 20 mg PO QDAY Qty: 30 RF: 5 fluoxetine 20 mg capsule 20 mg PO QDAY Qty: 30 RF: 5 gabapentin 300 mg capsule 300 mg PO BID Qty: 60 RF: 2 metoprolol succinate 25 mg tablet extended release 24 hr 25 mg PO QDAY Qty: 30 RF: 0 buprenorphine-naloxone [Suboxone] 8-2 mg film 1 film SUBLINGUAL TID Qty: 90 RF: 0 potassium chloride 20 mEq tablet,ER particles/crystals 20 meq PO BID Qty: 60 RF: 5 tamsulosin [Flomax] 0.4 mg capsule 0.4 mg PO QHS Qty: 30 RF: 0 albuterol sulfate [ProAir HFA] 90 mcg/actuation HFA aerosol inhaler 2 puff INHALATION .Q4-6H PRN (Reason: shortness of breath or wheezing) Qty: 8.5 RF: 3 clonidine HCl 0.1 MG tablet 1 tab PO DAILY RF: 0 benzonatate 200 MG capsule 200 mg PO TID RF: 0 bupropion HCl 100 MG tablet 1 tab PO TID RF: 0 dicyclomine 20 MG tablet 20 mg PO AC PRN (Reason: abdominal discomfort) RF: 0 ondansetron 4 MG tablet 4 mg PO Q6-8HP PRN (Reason: Nausea) RF: 0 budesonide-formoterol 160-4.5 mcg/actuation HFA aerosol inhaler 2 puff PO BID PRN (Reason: Shortness Of Breath) RF: 0 Follow Up Plan Follow up with: Colleen Marroquin [Other] (Please call to follow up with [facility]) Fracisco Canseco, [employer] [Primary Care Provider] - Prognosis: Fair Rehab Potential: Fair Discharge Orders: Discharge Order (Routine); Ordered 10/22/19 Ordered By: Roverto Delgado
--- NOTE | 2019-10-21 15:00 | Internal Med Progress Note ---
SUBJECTIVE Subjective Patient information: Note initiated : 10/21/19 at 2:59 pm Service Date, if different from initiated Date: [] Patient: Moises Royal 38 y/o M admitted on 10/16/19 for mid abd pain. Chief Complaint: [] Constitutional Vitals: Vital Signs Temp Pulse Resp BP Pulse Ox 97.6 F 113 H 8 L 119/85 93 10/21/19 14:00 10/20/19 20:48 10/21/19 14:00 10/21/19 14:00 10/21/19 14:00 Period Temp Pulse Resp BP Sys/Campos Pulse Ox Last 24 Hr 97.1 F-98.5 F 113-117 8-27 111-134/73-91 86-100 Intake and Output 10/21/19 10/21/19 10/21/19 05:59 13:59 21:59 Intake Total 746 444 Output Total 700 350 Balance 46 94 Weight 105.914 kg Patient Weight 10/22/19 05:59 Weight 105.914 kg Intake & Output: Intake & Output 10/21/19 10/21/19 10/21/19 05:59 13:59 21:59 Intake Total 746 444 Output Total 700 350 Balance 46 94 Weight 105.914 kg Intake: IV 65 65 Oral 360 Tube Feeding 261 319 GI Tube Flush 60 60 Output: Void Amount 500 350 Stool 200 Other: Urine Appearance Clear Urine Color Dark Yellow Stool Size Large Stool Color Brown Brown Stool Consistency Liquid Liquid OBJ DATA Labs CBC & Chem 7: 10/21/19 05:04 10/21/19 05:04 Labs: Abnormal Lab Results 10/21/19 10/21/19 10/20/19 05:04 05:04 04:42 WBC RBC 3.29 L Hgb 11.9 L Hct 35.7 L MCV 108.5 H MCH 36.2 H Seg Neutrophils % Lymphocytes % Metamyelocytes % 2 H Myelocytes % 2 H RBC Morphology Abnorm A Polychromasia 1+ A Macrocytosis 2+ A Sodium 132 L Chloride 93 L Carbon Dioxide BUN 5 L Creatinine 0.6 L 0.6 L Calcium 8.5 L Phosphorus 2.6 L 2.0 L Direct Bilirubin 0.4 H 0.4 H GGT 370 H 330 H AST 133 H 111 H ALT 93 H 66 H Alkaline Phosphatase 223 H 223 H Lactate Dehydrogenase 309 H 385 H C-Reactive Protein Albumin 2.8 L 3.0 L Albumin/Globulin Ratio 0.8 L 0.9 L Lipase 10/20/19 10/19/19 10/19/19 04:42 04:45 04:45 WBC RBC 3.48 L Hgb 12.5 L Hct 37.8 L MCV 108.6 H MCH 35.9 H Seg Neutrophils % Lymphocytes % 11 L Metamyelocytes % 1 H Myelocytes % RBC Morphology Abnorm A Polychromasia 1+ A Macrocytosis 2+ A Sodium 131 L Chloride Carbon Dioxide 20 L BUN 5 L Creatinine 0.6 L Calcium 8.5 L Phosphorus 1.1 L Direct Bilirubin 0.5 H GGT 240 H AST 56 H ALT Alkaline Phosphatase 166 H Lactate Dehydrogenase 392 H C-Reactive Protein 27.4 H Albumin 2.8 L Albumin/Globulin Ratio 0.8 L Lipase 66 H 10/19/19 04:45 WBC 14.4 H RBC 3.36 L Hgb 12.3 L Hct 37.3 L MCV 111.0 H MCH 36.6 H Seg Neutrophils % 79 H Lymphocytes % 10 L Metamyelocytes % Myelocytes % RBC Morphology Abnorm A Polychromasia 1+ A Macrocytosis 2+ A Sodium Chloride Carbon Dioxide BUN Creatinine Calcium Phosphorus Direct Bilirubin GGT AST ALT Alkaline Phosphatase Lactate Dehydrogenase C-Reactive Protein Albumin Albumin/Globulin Ratio Lipase Meds: Medications Acetaminophen (Tylenol) 650 mg PO Q4-6HP PRN; Protocol PRN Reason: Per Pain Protocol/Fever > 101 Albuterol Sulfate (Ventolin) 2 puff INH Q4-6HP PRN PRN Reason: shortness of breath/wheezing Albuterol/Ipratropium (Duoneb) 3 ml NEB Q4HP PRN PRN Reason: Shortness Of Breath Last Admin: 10/20/19 06:07 Dose: 3 ml Documented by: Bisacodyl (Dulcolax) 10 mg [place] Q2-3DAYS PRN PRN Reason: Constipation Budesonide (Pulmicort) 0.5 mg NEB Q12 [facility] Last Admin: 10/21/19 08:56 Dose: 0.5 mg Documented by: Bupropion HCl (Wellbutrin) 100 mg PO TID [facility] Last Admin: 10/21/19 09:46 Dose: 100 mg Documented by: Chlorhexidine Gluconate (Peridex) 15 ml SWABMOUTH BID [facility] Last Admin: 10/21/19 09:47 Dose: 15 ml Documented by: Clonidine HCl (Catapres) 0.1 mg PO DAILY [facility] Last Admin: 10/21/19 09:46 Dose: 0.1 mg Documented by: Diazepam (Valium) 10 mg IV Q2HP PRN PRN Reason: Alcohol Withdrawal Docusate Sodium (Colace) 100 mg PO BID [facility] Last Admin: 10/21/19 09:47 Dose: Not Given Documented by: Fluoxetine HCl (Prozac) 20 mg PO QDAY [facility] Last Admin: 10/21/19 09:44 Dose: 20 mg Documented by: Furosemide (Lasix) 40 mg PO BIDD [facility] Last Admin: 10/21/19 09:47 Dose: 40 mg Documented by: Gabapentin (Neurontin) 300 mg PO BID [facility] Last Admin: 10/21/19 09:46 Dose: 300 mg Documented by: Heparin Sodium (Porcine) (Heparin) 5,000 unit SQ Q12 [facility] Last Admin: 10/21/19 09:46 Dose: 5,000 unit Documented by: Hydromorphone HCl (Dilaudid) 2 mg PO Q4HP PRN; Protocol PRN Reason: Per Pain Protocol Last Admin: 10/21/19 12:16 Dose: 2 mg Documented by: Acetaminophen (Ofirmev) 650 mg in 65 mls @ 130 mls/hr IV Q6HP PRN; Protocol PRN Reason: Per Pain Protocol/Fever > 101 Last Infusion: 10/21/19 12:18 Dose: Infused Documented by: Potassium Chloride 40 meq/ (Dextrose) 520 mls @ 130 mls/hr IV UD PRN PRN Reason: K+ = or < 3.5 Last Admin: 10/21/19 09:44 Dose: 130 mls/hr Documented by: Magnesium Sulfate (Magnesium Sulfate) 2 gm in 50 mls @ 50 mls/hr IV UD PRN PRN Reason: MG = or < 1.7 Iron Carb/Multivit/[place]/Folic Acid (Multivitamin W/Minerals) 1 tab PO DAILY [facility] Last Admin: 10/21/19 09:44 Dose: 1 tab Documented by: Lorazepam (Ativan) 0.5 mg PO Q4HP PRN PRN Reason: ANXIETY/SEDATION Stop: 10/31/19 11:52 Last Admin: 10/21/19 13:16 Dose: 0.5 mg Documented by: Metoprolol Succinate (Toprol Xl) 25 mg PO QDAY [facility] Last Admin: 10/21/19 09:47 Dose: 25 mg Documented by: Metoprolol Tartrate (Lopressor) 5 mg IV Q5M PRN PRN Reason: Tachyarrhythmias Last Admin: 10/17/19 22:47 Dose: 5 mg Documented by: Nicotine (Nicoderm) 21 mg TOPICAL DAILY@1000 [facility] Last Admin: 10/21/19 11:01 Dose: 21 mg Documented by: Ondansetron HCl (Zofran Odt) 4 mg SL Q4-6HP PRN; Protocol PRN Reason: Nausea And Vomiting Last Admin: 10/21/19 03:00 Dose: 4 mg Documented by: Ondansetron HCl (Zofran) 4 mg IV Q4-6HP PRN; Protocol PRN Reason: Nausea And Vomiting Last Admin: 10/19/19 16:30 Dose: 4 mg Documented by: [facility]oprazole [facility]) [facility] Last Admin: 10/21/19 07:20 Dose: 40 mg Documented by: Budesonide/Formoterol Fumarate [Symbicort] 160-4.5 Mcg Inhaler 2 dose INH BIDP PRN PRN Reason: Shortness Of Breath Polyethylene Glycol (Miralax) 17 gm PO DAILYP PRN PRN Reason: Constipation Potassium Chloride (Kdur) 20 meq PO BIDCC [facility] Last Admin: 10/21/19 09:44 Dose: 20 meq Documented by: Potassium/Phosphorus/Sodium (Neutra Phos) 2 packet PO BIDP PRN PRN Reason: Phosphorus less than 2.6 Last Admin: 10/21/19 12:18 Dose: 2 packet Documented by: Promethazine HCl (Phenergan) 0 mg IV Q4HP PRN PRN Reason: Nausea And Vomiting Last Admin: 10/18/19 16:53 Dose: 12.5 mg Documented by: Senna/Docusate Sodium (Senna Plus Tablet) 1 tab PO HS [facility] Last Admin: 10/20/19 21:04 Dose: Not Given Documented by: Sodium Chloride (Saline Flush) 10 ml IV Q8 [facility] Last Admin: 10/21/19 12:16 Dose: 10 ml Documented by: Tamsulosin HCl (Flomax) 0.4 mg PO QHS [facility] Last Admin: 10/20/19 21:02 Dose: 0.4 mg Documented by: Thiamine HCl (Vitamin B1) 100 mg PO DAILY [facility] Last Admin: 10/21/19 09:46 Dose: 100 mg Documented by: A/P Assessment and plan (1) Pancreatitis: Status: Acute Time Spent With Patient Time: Total time spent is greater than 50% in coordination of care (as documented) at patient's floor/unit and/or counseling patient:
[2019-10-21] MEDS: SENNOSIDES/DOCUSATE SODIUM 1 TAB TABLET PO SCH (20:34)
[2019-10-21] MEDS: TAMSULOSIN 0.4 MG CAPSULE PO SCH (20:34)
[2019-10-21] MEDS: IPRATROPIUM/ALBUTEROL 3 ML AMPUL.NEB NEB PRN (20:57)
[2019-10-22] MEDS: LORazepam 0.5 MG TABLET PO PRN (00:04)
[2019-10-22] MEDS: HYDROmorphone 2 MG TABLET PO PRN ×2 (03:58→08:52)
[2019-10-22] MEDS: 0.9 % SODIUM CHLORIDE 10 ML SYRINGE IV SCH (05:19)
[2019-10-22] MEDS: PANTOPRAZOLE 40 MG VIAL IV SCH (07:14)
[2019-10-22] MEDS: METOPROLOL SUCCINATE 25 MG TAB.XL.24H PO SCH (08:47)
[2019-10-22] MEDS: HEPARIN 5,000 UNIT/ML VIAL SQ SCH (08:47)
[2019-10-22] MEDS: THIAMINE 100 MG TABLET PO SCH (08:48)
[2019-10-22] MEDS: CHLORHEXIDINE GLUCONATE 1 ML ORAL.SOL SWABMOUTH SCH (08:48)
[2019-10-22] MEDS: MULTIVIT,THER IRON,CA,FA & MIN 1 TABLET PO SCH (08:48)
[2019-10-22] MEDS: FUROSEMIDE 40 MG TABLET PO SCH (08:48)
[2019-10-22] MEDS: FLUoxetine HCL 20 MG CAPSULE PO SCH (08:48)
[2019-10-22] MEDS: cloNIDine HCL 0.1 MG TABLET PO SCH (08:48)
[2019-10-22] MEDS: DOCUSATE SODIUM 100 MG CAPSULE PO SCH (08:48)
[2019-10-22] MEDS: POTASSIUM CHLORIDE 20 MEQ TABLET PO SCH (08:48)
[2019-10-22] MEDS: GABAPENTIN 300 MG CAPSULE PO SCH (08:48)
[2019-10-22] MEDS: BUDESONIDE 0.5 MG/2 ML AMPUL.NEB NEB SCH (08:57)
[2019-10-22] MEDS: IPRATROPIUM/ALBUTEROL 3 ML AMPUL.NEB NEB PRN (08:57)
[2019-10-22] MEDS: buPROPion 100 MG TABLET PO SCH (09:39)
[2019-10-22] MEDS: NICOTINE 21 MG PATCH TOPICAL SCH (11:27)
== END 2019-10-22 11:05 | disposition home or self-care (01) | DRG 439 ==
LOC: ED 13:38 → ICU 18:45
PROVIDERS: ADMIT Internal Medicine; ATTEND Internal Medicine

== ENCOUNTER 2020-03-24 16:09 | Inpatient (IN) ==
[2020-03-24] MEDS ORDERED: IOPAMIDOL 100 ML BOTTLE IV ONE (16:10)
[2020-03-24] MEDS ORDERED: METOCLOPRAMIDE 10 MG/2 ML VIAL IV ONE (16:25)
[2020-03-24] MEDS ORDERED: 0.9 % SODIUM CHLORIDE 1,000 ML IV ONE (16:25)
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
[2020-03-24 17:20] LABS: Basophils # (Auto) 0.02 K/mcL (0.00-0.20); Basophils % (Auto) 0.2 % (0.0-2.0); Eosinophils # (Auto) 0.05 K/mcL (0.00-0.70); Eosinophils % (Auto) 0.6 % (0.0-7.0); Hemoglobin 15.1 g/dL (13.5-16.5); Lymphocytes # (Auto) 1.04 K/mcL (1.50-4.80); Lymphocytes % (Auto) 11.6 % (15.0-49.0); Mean Cell Volume 96.8 fL (80.0-100.0); Mean Platelet Volume 10.3 fL (7.4-10.4); Monocytes # (Auto) 0.56 K/mcL (0.10-0.90); Monocytes % (Auto) 6.3 % (1.0-12.0); Neutrophils % (Auto) 81.3 % (38.0-78.0); Platelet Count 247 K/mcL (140-440); RBC 4.34 M/mcL (4.50-5.90); Red Cell Distribution Width 13.4 % (11.5-14.5)
[2020-03-24 17:55] LABS: ALT/SGPT 60 U/L (<40); AST/SGOT 41 U/L (<40); Albumin 4.1 gm/dL (3.2-5.2); Albumin/Globulin Ratio 1.5 (1.0-2.3); Alkaline Phosphatase 155 U/L (39-117); Blood Urea Nitrogen 8 mg/dL (6-20); Calcium 9.1 mg/dL (8.6-10.4); Carbon Dioxide 28 mmol/L (22-30); Chloride 97 mmol/L (96-108); Globulin 2.7 gm/dL (2.2-3.7); Glomerular Filtration Rate 119; Glucose 130 mg/dL (70-105)
[2020-03-24] MEDS ORDERED: diphenhydrAMINE 50 MG/ML VIAL IV ONE (18:01)
[2020-03-24] MEDS ORDERED: POTASSIUM CHLORIDE 20 MEQ in DEXTROSE 5% IN WATER 250 ML IV ONE (18:01)
[2020-03-24] MEDS ORDERED: HALOPERIDOL LACTATE 5 MG/ML VIAL IV ONE (18:01)
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
--- NOTE | 2020-03-24 19:08 | Cat Scan Report ---
CLINICAL INFORMATION: Pancreatitis COMPARISON: Abdomen and pelvic CT 01/30/2020 TECHNIQUE: Following enteric contrast, 80 cc of Isovue-370 were injected intravenously, and 60 seconds later, 0.625 mm helical slices were obtained from the mid heart through the subtrochanteric regions. Following reconstruction, 2.5 mm sagittal, coronal and axial reformatted images were processed and reviewed at bone, lung and soft tissue windows. Five minutes later, 0.625 mm helical slices were obtained from the mid heart through the kidneys and viewed at soft tissue windows.The exam was performed using radiation dose optimization techniques including, but not limited to, automated exposure control, adjustment of the mA and/or kV according to patient size and use of iterative reconstruction technique. FINDINGS: Lung bases show subsegmental atelectasis which has increased from previous study. No effusions. Visualized heart is normal. Abdominal images show mild hepatomegaly with diffuse fatty change - as previously seen and there are no focal hepatic lesions. Gallbladder and bile ducts are unremarkable. The pancreas is now diffusely enlarged with inhomogeneous attenuation and fluid in the peripancreatic fat planes compatible with recurrent simple pancreatitis. A 11 mm pseudocyst uncinate processes is seen as before. There is no evidence of necrosis, abscess, splenic vein thrombosis or other complication from pancreatitis. Both kidneys, adrenal glands, spleen and aorta including aortic branches are unremarkable. Pelvic images show prostate, seminal vesicles and urinary bladder are normal. There are scattered sigmoid diverticuli, but no evidence of diverticulitis. The remaining colon is normal. The appendix is surgically absent. Small bowel and stomach are unremarkable. Small periumbilical hernia, containing only mesenteric fat, is unchanged. Bone windows shows no osseous abnormality IMPRESSION: 1. Recurrent simple pancreatitis. 8 mm pseudocyst in the uncinate process is stable. 2. Mild hepatomegaly with diffuse fatty change - stable 3. Sigmoid diverticulosis, but no evidence of diverticulitis Interpreted and Authenticated by: Ramana Devries 03/24/20
[2020-03-24] MEDS ORDERED: POTASSIUM CHLORIDE 40 MEQ in DEXTROSE 5% IN WATER 500 ML IV ONE (19:13)
[2020-03-24] MEDS ORDERED: MAGNESIUM SULFATE 2 GM/50 ML BAG IV PRN (20:27)
[2020-03-24] MEDS ORDERED: Budesonide-Formoterol [Symbicort] Inhaler PO PRN (20:27)
[2020-03-24] MEDS ORDERED: ONDANSETRON 4 MG/2 ML VIAL IV PRN (20:27)
[2020-03-24] MEDS ORDERED: POLYETHYLENE GLYCOL 3350 17 GM PACKET PO PRN (20:27)
[2020-03-24] MEDS ORDERED: hydrALAZINE 20 MG/ML VIAL IV PRN (20:27)
[2020-03-24] MEDS ORDERED: METOPROLOL TARTRATE 5 MG/5 ML VIAL IV PRN (20:27)
[2020-03-24] MEDS ORDERED: ACETAMINOPHEN 650 MG/65 ML BOTTLE IV PRN (20:27)
[2020-03-24] MEDS ORDERED: BISACODYL 10 MG SUPP.RECT PR PRN (20:27)
[2020-03-24] MEDS ORDERED: HYDROmorphone 0.5 MG/0.5 ML SYRINGE ONE (20:49)
[2020-03-24] MEDS ORDERED: ARIPIPRAZOLE 2 MG PO SCH (21:00)
[2020-03-24] MEDS ORDERED: BUPRENORPHINE NALOXONE SUBLINGUAL SCH (21:00)
[2020-03-24] MEDS: 0.9 % SODIUM CHLORIDE 1,000 ML IV SCH ×2 (21:08→22:12)
[2020-03-24] MEDS ORDERED: CYCLOBENZAPRINE 10 MG TABLET PO PRN (21:14)
[2020-03-24] MEDS ORDERED: NICOTINE 21 MG PATCH TOPICAL ONE (21:33)
[2020-03-24] MEDS ORDERED: POTASSIUM CHLORIDE 20 MEQ/10 ML VIAL IV ONE (21:56)
[2020-03-24] MEDS ORDERED: NICOTINE 21 MG PATCH ONE (21:57)
[2020-03-24] MEDS: GABAPENTIN 300 MG CAPSULE PO SCH (22:05)
[2020-03-24] MEDS: SENNOSIDES/DOCUSATE SODIUM 1 TAB TABLET PO SCH (22:05)
[2020-03-24] MEDS: TAMSULOSIN 0.4 MG CAPSULE PO SCH (22:05)
[2020-03-24] MEDS: DOCUSATE SODIUM 100 MG CAPSULE PO SCH (22:05)
[2020-03-24] MEDS: HEPARIN 5,000 UNIT/ML VIAL SQ SCH (22:05)
[2020-03-24] MEDS: POTASSIUM CHLORIDE 20 MEQ TABLET PO SCH (22:05)
[2020-03-24] MEDS: buPROPion 100 MG TABLET PO SCH (22:06)
[2020-03-24] MEDS: IPRATROPIUM/ALBUTEROL SULFATE 1 PUFF INHALER INH SCH (22:10)
[2020-03-24] MEDS: 0.9 % SODIUM CHLORIDE 10 ML SYRINGE IV SCH (22:10)
[2020-03-24] MEDS: POTASSIUM CHLORIDE 40 MEQ in DEXTROSE 5% IN WATER 500 ML IV PRN (22:13)
[2020-03-24] MEDS: MELATONIN 3 MG TABLET PO PRN (22:40)
[2020-03-24] MEDS: ACETAMINOPHEN 325 MG TABLET PO PRN (22:40)
[2020-03-25] MEDS: HYDROmorphone 0.5 MG/0.5 ML SYRINGE IV PRN ×5 (03:36→21:15)
[2020-03-25] MEDS: 0.9 % SODIUM CHLORIDE 10 ML SYRINGE IV SCH ×3 (04:55→21:06)
[2020-03-25] MEDS: ACETAMINOPHEN 325 MG TABLET PO PRN ×4 (05:54→21:04)
[2020-03-25] MEDS: 0.9 % SODIUM CHLORIDE 1,000 ML IV SCH ×3 (06:38→21:43)
[2020-03-25 06:59] LABS: Basophils # (Auto) 0.03 K/mcL (0.00-0.20); Basophils % (Auto) 0.3 % (0.0-2.0); Eosinophils # (Auto) 0.12 K/mcL (0.00-0.70); Eosinophils % (Auto) 1.1 % (0.0-7.0); Hematocrit 39.4 % (41.0-55.0); Lymphocytes # (Auto) 1.01 K/mcL (1.50-4.80); Lymphocytes % (Auto) 9.5 % (15.0-49.0); Mean Cell Volume 98.5 fL (80.0-100.0); Mean Corpuscular HGB Conc 35.5 g/dL (31.0-36.0); Mean Platelet Volume 10.4 fL (7.4-10.4); Monocytes # (Auto) 0.76 K/mcL (0.10-0.90); Monocytes % (Auto) 7.2 % (1.0-12.0); Neutrophils % (Auto) 81.9 % (38.0-78.0); Platelet Count 219 K/mcL (140-440); Red Cell Distribution Width 13.4 % (11.5-14.5); WBC 10.6 K/mcL (4.5-11.0)
[2020-03-25 07:28] LABS: ALT/SGPT 44 U/L (<40); AST/SGOT 26 U/L (<40); Albumin 3.7 gm/dL (3.2-5.2); Albumin/Globulin Ratio 1.6 (1.0-2.3); Alkaline Phosphatase 138 U/L (39-117); Bilirubin,Direct 0.3 mg/dL (<0.3); Bilirubin,Total 0.9 mg/dL (0.1-1.0); Blood Urea Nitrogen 6 mg/dL (6-20); Calcium 8.3 mg/dL (8.6-10.4); Carbon Dioxide 23 mmol/L (22-30); Chloride 102 mmol/L (96-108); Globulin 2.3 gm/dL (2.2-3.7); Glomerular Filtration Rate 126; Glucose 115 mg/dL (70-105); Lactate Dehydrogenase 191 U/L (135-225); Phosphorous 1.8 mg/dL (2.5-4.5); Triglycerides 184 mg/dL (<150); Uric Acid 5.2 mg/dL (2.5-8.0)
[2020-03-25] MEDS: THIAMINE 100 MG TABLET PO SCH (08:14)
[2020-03-25] MEDS: FAMOTIDINE 20 MG TABLET PO SCH (08:14)
[2020-03-25] MEDS: POTASSIUM CHLORIDE 20 MEQ TABLET PO SCH ×2 (08:15→21:06)
[2020-03-25] MEDS: MULTIVIT,THER IRON,CA,FA & MIN 1 TABLET PO SCH (08:15)
[2020-03-25] MEDS: FLUoxetine HCL 20 MG CAPSULE PO SCH (08:15)
[2020-03-25] MEDS: METOPROLOL SUCCINATE 50 MG TAB.XL.24H PO SCH (08:15)
[2020-03-25] MEDS: DOCUSATE SODIUM 100 MG CAPSULE PO SCH ×2 (08:16→21:05)
[2020-03-25] MEDS: FUROSEMIDE 40 MG TABLET PO SCH ×2 (08:16→16:19)
[2020-03-25] MEDS: IPRATROPIUM/ALBUTEROL SULFATE 1 PUFF INHALER INH SCH ×4 (08:19→21:05)
[2020-03-25] MEDS: BUPRENORPHINE NALOXONE SL SCH ×3 (08:19→21:06)
[2020-03-25] MEDS: HEPARIN 5,000 UNIT/ML VIAL SQ SCH ×2 (08:20→21:05)
[2020-03-25] MEDS: buPROPion 100 MG TABLET PO SCH ×3 (10:08→21:14)
[2020-03-25] MEDS: GABAPENTIN 300 MG CAPSULE PO SCH ×2 (10:14→21:01)
--- NOTE | 2020-03-25 10:50 | Internal Med Progress Note ---
SUBJECTIVE Subjective Patient information: Note initiated : 03/25/20 at 10:46 am Service Date, if different from initiated Date: [] Patient: Moises Royal a 39 y/o M admitted on 03/24/20 for abdominal pain. Chief Complaint: History of present illness: Mr. Royal is a 39 year old M with history of chronic IV drug use known for drug-seeking behavior/COPD, hypertension/hepatitis C who presents to the ER with worsening abdominal pain since evening described as 12/11 with increasing discomfort and nausea. Patient has not been able to eat or drink over the last 24 hours. Initial work-up in the ER was consistent with elevated lipase over 500/volume depletion potassium 2.9, and CT suggestive of simple pancreatitis. Patient was started on crystalloid/subsequently hospital service was consulted At the time of my evaluation patient is in significant distress. He denies diarrhea, dysuria, fever, shaking chills productive cough. He denies recent alcohol use but endorses to daily smoking. No family members were present. 03/25-patient doing well. Started on oral clears. Tolerating well. Pain improved. White count 10.6, potassium improved to 3.3 from 2.9, creatinine 0.6, calcium 8.3, magnesium 1.4 on replacement. Improving LFTs. CRP 6.5 Constitutional Vitals: Vital Signs Temp Pulse Resp BP Pulse Ox 99.3 F H 99 H 18 147/96 95 03/25/20 07:00 03/25/20 07:00 03/25/20 07:00 03/25/20 07:00 03/25/20 07:00 Period Temp Pulse Resp BP Sys/Campos Pulse Ox Last 24 Hr 97.3 F-99.3 F 82-103 01-23 119-159/83-112 93-98 Intake and Output 03/24/20 03/25/20 03/25/20 21:59 05:59 13:59 Intake Total 1200 1650 Output Total 680 Balance 1200 970 Weight 97.296 kg nonlabored breathing alert oriented No anxiety Nondistended abdomen Intake & Output: Intake & Output 03/24/20 03/25/20 03/25/20 21:59 05:59 13:59 Intake Total 1200 1650 Output Total 680 Balance 1200 970 Weight 97.296 kg Intake: IV 1200 1550 Sodium Chloride 0.9% 1,000 ml @ 1000 1030 100 mls/hr IV .Q10H [facility] Rx#: [id number] Potassium Chloride 20 Meq In 200 Dextrose 5% in Water 250 ml @ 130 mls/hr IV ONCE ONE Rx#: [id number] Potassium Chloride 40 Meq In 520 Dextrose 5% in Water 500 ml @ 130 mls/hr IV UD PRN Rx#: [id number] Oral 100 Output: Void Amount 680 Other: Urine Appearance Clear Clear Urine Color Dark Yellow Dark Unique Tea Colored OBJ DATA Labs CBC & Chem 7: 03/25/20 06:17 03/25/20 06:17 Labs: Abnormal Lab Results 03/25/20 03/25/20 03/24/20 06:17 06:17 16:40 RBC 4.00 L Hct 39.4 L MCH 35.0 H Neut % (Auto) 81.9 H Lymph % (Auto) 9.5 L Lymph # (Auto) 1.01 L Absolute Neutrophils 8.69 H Potassium 2.9 L* Creatinine 0.6 L Glucose 115 H 130 H Calcium 8.3 L Phosphorus 1.8 L Magnesium 1.4 L Direct Bilirubin 0.3 H GGT 200 H AST 41 H ALT 44 H 60 H Alkaline Phosphatase 138 H 155 H C-Reactive Protein 6.50 H Triglycerides 184 H Lipase > 593 H 03/24/20 16:40 RBC 4.34 L Hct MCH 34.8 H Neut % (Auto) 81.3 H Lymph % (Auto) 11.6 L Lymph # (Auto) 1.04 L Absolute Neutrophils Potassium Creatinine Glucose Calcium Phosphorus Magnesium Direct Bilirubin GGT AST ALT Alkaline Phosphatase C-Reactive Protein Triglycerides Lipase Meds: Medications Acetaminophen (Tylenol) 650 mg PO Q4-6HP PRN; Protocol PRN Reason: Per Pain Protocol/Fever > 101 Last Admin: 03/25/20 10:34 Dose: 650 mg Documented by: Albuterol/Ipratropium (Combivent) 1 puff INH QID [facility] Last Admin: 03/25/20 08:19 Dose: Not Given Documented by: Bisacodyl (Dulcolax) 10 mg [place] Q2-3DAYS PRN PRN Reason: Constipation Bupropion HCl (Wellbutrin) 100 mg PO TID [facility] Last Admin: 03/25/20 10:08 Dose: 100 mg Documented by: Cyclobenzaprine HCl (Flexeril) 10 mg PO TIDP PRN PRN Reason: Muscle Spasm Docusate Sodium (Colace) 100 mg PO BID [facility] Last Admin: 03/25/20 08:16 Dose: 100 mg Documented by: Famotidine (Pepcid) 20 mg PO QDAY [facility] Last Admin: 03/25/20 08:14 Dose: 20 mg Documented by: Fluoxetine HCl (Prozac) 40 mg PO DAILY [facility] Last Admin: 03/25/20 08:15 Dose: 40 mg Documented by: Furosemide (Lasix) 40 mg PO BIDD [facility] Last Admin: 03/25/20 08:16 Dose: 40 mg Documented by: Gabapentin (Neurontin) 300 mg PO BID [facility] Last Admin: 03/25/20 10:14 Dose: 300 mg Documented by: Heparin Sodium (Porcine) (Heparin) 5,000 unit SQ Q12 [facility] Last Admin: 03/25/20 08:20 Dose: 5,000 unit Documented by: Hydralazine HCl (Apresoline) 10 mg IV Q4-6HP PRN PRN Reason: Hypertension Hydromorphone HCl (Dilaudid) 0.25 - 0.5 mg IV Q4HP PRN; Protocol PRN Reason: Per Pain Protocol Last Admin: 03/25/20 07:49 Dose: 0.5 mg Documented by: Potassium Chloride 40 meq/ (Dextrose) 520 mls @ 130 mls/hr IV UD PRN PRN Reason: K+ = or < 3.5 Last Infusion: 03/25/20 03:29 Dose: Infused Documented by: Acetaminophen (Ofirmev) 650 mg in 65 mls @ 130 mls/hr IV Q6HP PRN; Protocol PRN Reason: Per Pain Protocol/Fever > 101 Magnesium Sulfate (Magnesium Sulfate) 2 gm in 50 mls @ 50 mls/hr IV UD PRN PRN Reason: MG = or < 1.7 Last Admin: 03/25/20 10:35 Dose: 50 mls/hr Documented by: Sodium Chloride (Sodium Chloride 0.9%) 1,000 mls @ 100 mls/hr IV .Q10H [facility] Last Admin: 03/25/20 06:38 Dose: Not Given Documented by: Sodium Chloride (Sodium Chloride 0.9%) 1,000 mls @ 0 mls/hr IV BOLUS [facility] Last Infusion: 03/24/20 22:17 Dose: Infused Documented by: Iron Carb/Multivit/[place]/Folic Acid (Multivitamin W/Minerals) 1 tab PO DAILY [facility] Last Admin: 03/25/20 08:15 Dose: 1 tab Documented by: Melatonin (Melatonin 3mg Tablet) 3 mg PO HSP PRN PRN Reason: Insomnia Last Admin: 03/24/20 22:40 Dose: 3 mg Documented by: Metoprolol Succinate (Toprol Xl) 50 mg PO QDAY [facility] Last Admin: 03/25/20 08:15 Dose: 50 mg Documented by: Metoprolol Tartrate (Lopressor) 5 mg IV Q5M PRN PRN Reason: Heart Rate > 140 bpm Budesonide- Formoterol [ Symbicort] Inhaler 2 puff PO BID PRN PRN Reason: copd Ondansetron HCl (Zofran Odt) 4 mg SL Q4-6HP PRN; Protocol PRN Reason: Nausea And Vomiting Ondansetron HCl (Zofran) 4 mg IV Q4-6HP PRN; Protocol PRN Reason: Nausea And Vomiting Buprenorphine- Naloxone [Suboxone] 8 Mg/2 Mg Film 1 dose SL TID [facility] Last Admin: 03/25/20 08:19 Dose: Not Given Documented by: Polyethylene Glycol (Miralax) 17 gm PO DAILYP PRN PRN Reason: Constipation Potassium Chloride (Kdur) 20 meq PO BID [facility] Last Admin: 03/25/20 08:15 Dose: 20 meq Documented by: Senna/Docusate Sodium (Senna Plus Tablet) [address] [facility] Last Admin: 03/24/20 22:05 Dose: 1 tab Documented by: Sodium Chloride (Saline Flush) 10 ml IV Q8 [facility] Last Admin: 03/25/20 04:55 Dose: Not Given Documented by: Tamsulosin HCl (Flomax) 0.[address] [facility] Last Admin: 03/24/20 22:05 Dose: 0.4 mg Documented by: Thiamine HCl (Vitamin B1) 100 mg PO DAILY [facility] Last Admin: 03/25/20 08:14 Dose: 100 mg Documented by: A/P Narrative A/P Narrative: * Acute on chronic pancreatitis -low [place] 2 score on presentation. Clinical improvement noted on conservative management with bowel rest/analgesics/antiemetics/crystalloids. CRP 6.5. Start oral clears. * Severe abdominal pain-improving on opioids * Hypokalemia improving with replacement * History of hypertension start as needed hydralazine. Hold oral medications * History of IV drug use/opioid dependence currently on Suboxone. Methamphetamine positive on urine drug screen * Anxiety disorder continue as needed IV anxiolytics * History of COPD continue bronchodilators * Tobacco dependence-counseled for cessation, nicotine patch * Prophylaxis heparin Plan * Start oral clears/conservative management * Serial CRP * Pre-existing medical condition management as above Time Spent With Patient Time: Total time spent is greater than 50% in coordination of care (as documented) at patient's floor/unit and/or counseling patient: QUALITY VTE Deep Vein Thrombosis/Pulmonary Embolism Present on Admission: No
[2020-03-25] MEDS: POTASSIUM CHLORIDE 40 MEQ in DEXTROSE 5% IN WATER 500 ML IV PRN (12:17)
[2020-03-25] MEDS ORDERED: ARIPIPRAZOLE 5 MG TABLET PO SCH (21:00)
[2020-03-25] MEDS: MELATONIN 3 MG TABLET PO PRN (21:03)
[2020-03-25] MEDS: TAMSULOSIN 0.4 MG CAPSULE PO SCH (21:03)
[2020-03-25] MEDS: SENNOSIDES/DOCUSATE SODIUM 1 TAB TABLET PO SCH (21:06)
[2020-03-25] MEDS: ONDANSETRON 4 MG ODT TABLET SL PRN (21:12)
[2020-03-26] MEDS: HYDROmorphone 0.5 MG/0.5 ML SYRINGE IV PRN ×3 (02:16→11:03)
[2020-03-26] MEDS: 0.9 % SODIUM CHLORIDE 1,000 ML IV SCH ×2 (02:16→13:06)
[2020-03-26] MEDS: ACETAMINOPHEN 325 MG TABLET PO PRN ×3 (02:18→11:07)
[2020-03-26] MEDS: ONDANSETRON 4 MG ODT TABLET SL PRN (04:11)
[2020-03-26] MEDS: 0.9 % SODIUM CHLORIDE 10 ML SYRINGE IV SCH (04:47)
[2020-03-26 06:20] LABS: Basophils # (Auto) 0.03 K/mcL (0.00-0.20); Basophils % (Auto) 0.2 % (0.0-2.0); Eosinophils # (Auto) 0.34 K/mcL (0.00-0.70); Eosinophils % (Auto) 2.7 % (0.0-7.0); Lymphocytes # (Auto) 1.74 K/mcL (1.50-4.80); Lymphocytes % (Auto) 13.9 % (15.0-49.0); Mean Cell Volume 100.5 fL (80.0-100.0); Mean Corpuscular HGB Conc 34.1 g/dL (31.0-36.0); Mean Platelet Volume 10.5 fL (7.4-10.4); Monocytes # (Auto) 0.94 K/mcL (0.10-0.90); Monocytes % (Auto) 7.5 % (1.0-12.0); Neutrophils % (Auto) 75.7 % (38.0-78.0); Platelet Count 223 K/mcL (140-440); RBC 4.08 M/mcL (4.50-5.90); Red Cell Distribution Width 13.4 % (11.5-14.5); WBC 12.5 K/mcL (4.5-11.0)
[2020-03-26 06:57] LABS: ALT/SGPT 42 U/L (<40); AST/SGOT 38 U/L (<40); Albumin 3.9 gm/dL (3.2-5.2); Albumin/Globulin Ratio 1.4 (1.0-2.3); Alkaline Phosphatase 173 U/L (39-117); Bilirubin,Direct 0.4 mg/dL (<0.3); Blood Urea Nitrogen 7 mg/dL (6-20); Calcium 9.1 mg/dL (8.6-10.4); Carbon Dioxide 24 mmol/L (22-30); Chloride 101 mmol/L (96-108); Globulin 2.7 gm/dL (2.2-3.7); Glomerular Filtration Rate 119; Glucose 101 mg/dL (70-105); Lactate Dehydrogenase 203 U/L (135-225); Phosphorous 2.5 mg/dL (2.5-4.5); Triglycerides 203 mg/dL (<150); Uric Acid 4.5 mg/dL (2.5-8.0)
--- NOTE | 2020-03-26 08:13 | XRay Report ---
HISTORY: Interval change, abdominal pain FINDINGS: Several linear opacities are present in both lung bases. Many of these were present on the prior chest x-ray done on 10/18/19 and may be a combination of scar and recurrent bands of discoid atelectasis. Lung volumes are normal. There is no consolidating infiltrate or pleural effusion. The heart size, pulmonary vasculature and mediastinum and serjio are normal. IMPRESSION: Scar/discoid atelectasis in both lung bases Interpreted and Authenticated by: Patel Cerrato 03/26/20
[2020-03-26] MEDS: HEPARIN 5,000 UNIT/ML VIAL SQ SCH (08:42)
[2020-03-26] MEDS: GABAPENTIN 300 MG CAPSULE PO SCH (08:43)
[2020-03-26] MEDS: FAMOTIDINE 20 MG TABLET PO SCH (08:43)
[2020-03-26] MEDS: buPROPion 100 MG TABLET PO SCH (08:43)
[2020-03-26] MEDS: FUROSEMIDE 40 MG TABLET PO SCH (08:43)
[2020-03-26] MEDS: METOPROLOL SUCCINATE 50 MG TAB.XL.24H PO SCH (08:43)
[2020-03-26] MEDS: DOCUSATE SODIUM 100 MG CAPSULE PO SCH (08:43)
[2020-03-26] MEDS: THIAMINE 100 MG TABLET PO SCH (08:43)
[2020-03-26] MEDS: MULTIVIT,THER IRON,CA,FA & MIN 1 TABLET PO SCH (08:43)
[2020-03-26] MEDS: FLUoxetine HCL 20 MG CAPSULE PO SCH (08:43)
[2020-03-26] MEDS: POTASSIUM CHLORIDE 20 MEQ TABLET PO SCH (08:43)
[2020-03-26] MEDS: BUPRENORPHINE NALOXONE SL SCH (08:44)
[2020-03-26] MEDS: IPRATROPIUM/ALBUTEROL SULFATE 1 PUFF INHALER INH SCH ×2 (08:44→12:19)
--- NOTE | 2020-03-26 12:05 | Discharge Summary ---
Discharge Provider Provider Patient information: Note initiated : 03/26/20 at 12:02 pm Service Date, if different from initiated Date: [] Patient: Moises Royal a 39 y/o M admitted on 03/24/20 for abdominal pain. Chief Complaint: Discharge diagnosis * Acute on chronic pancreatitis -low [place] 2 score on presentation. Clinical improvement noted on conservative management with bowel rest/analgesics/antiemetics/crystalloids. Now tolerating diet. Advised to refrain from alcohol and high-fat foods. Discharging home * Severe abdominal pain-resolved with improvement in pancreatitis, managed on opioids * Hypokalemia resolved with replacement * History of hypertension start as needed hydralazine. Hold oral medications * History of IV drug use/opioid dependence currently on Suboxone. Continue follow-up with pain clinic. Methamphetamine positive on urine drug screen * Anxiety disorder continue as needed IV anxiolytics * History of COPD continue bronchodilators * Tobacco dependence-counseled for cessation, nicotine patch. Counseled for cessation Brief hospital course History of present illness: Mr. Royal is a 39 year old M with history of chronic IV drug use known for drug-seeking behavior/COPD, hypertension/hepatitis C who presents to the ER with worsening abdominal pain since evening described as 8/10 with increasing discomfort and nausea. Patient has not been able to eat or drink over the last 24 hours. Initial work-up in the ER was consistent with elevated lipase over 500/volume depletion potassium 2.9, and CT suggestive of simple pancreatitis. Patient was started on crystalloid/subsequently hospital service was consulted At the time of my evaluation patient is in significant distress. He denies diarrhea, dysuria, fever, shaking chills productive cough. He denies recent alcohol use but endorses to daily smoking. No family members were present. 03/25-patient doing well. Started on oral clears. Tolerating well. Pain improved. White count 10.6, potassium improved to 3.3 from 2.9, creatinine 0.6, calcium 8.3, magnesium 1.4 on replacement. Improving LFTs. CRP 6.5 03/26-patient doing a lot better. No overnight events. No concerns per staff. Tolerating diet and advancing to soft low-fat. Pain much improved. Stable labs and hemodynamics. White count 12.5, potassium 3.5, creatinine 0.7. CRP 16.2. Patient requesting discharge. Date of admission: 03/24/20 20:31 Discharge date: 03/26/20 Primary care physician: MAYCOL Charles Consults: 03/25/20 08:05 Consult to Physician [CONS] Routine Comment: Consulting Provider: Wiliam Irene Reason For Exam: Physician to Consult Discharge Meds Discharge Medications Home Medications cyclobenzaprine 10 mg tablet 10 mg PO Q8H PRN #90 tab 05/26/19 [Rx Confirmed 03/24/20 Last Taken 03/23/20 21:00] potassium chloride 20 mEq tablet,extended release(part/cryst) 20 meq PO BID #60 tab 10/13/19 [Rx Confirmed 03/24/20 Last Taken Unknown] budesonide-formoterol HFA 160 mcg-4.5 mcg/actuation aerosol inhaler 2 puff PO BID PRN #10.2 g 11/03/19 [Rx Confirmed 03/24/20 Last Taken Unknown] famotidine 20 mg tablet 20 mg PO QDAY #90 tab 11/03/19 [Rx Confirmed 03/24/20 Last Taken 03/23/20 21:00] ipratropium 20 mcg-albuterol 100 mcg/actuation mist for inhalation 1 puff INHALATION QID #4 g 11/18/19 [Rx Confirmed 03/24/20 Last Taken 03/23/20 21:00] gabapentin 300 mg capsule See Rx Instructions .ROUTE .COMPLEX #60 cap 12/22/19 [Rx Confirmed 03/24/20 Last Taken 03/23/20 21:00] mupirocin 2 % topical ointment 1 applic TOPICAL .COMPLEX #22 g 01/06/20 [Rx Confirmed 03/24/20 Last Taken 03/21/20 21:00] metoprolol succinate 50 mg tablet,extended release 24 hr 50 mg PO QDAY #30 tab 01/19/20 [Rx Confirmed 03/24/20 Last Taken 03/23/20 21:00] ondansetron HCl 4 mg tablet 4 mg PO Q8H PRN #30 tab 01/25/20 [Rx Confirmed 03/24/20 Last Taken 03/23/20 21:00] fluoxetine 40 mg capsule See Rx Instructions .ROUTE .COMPLEX #90 cap 02/02/20 [Rx Confirmed 03/24/20 Last Taken 03/23/20 21:00] tamsulosin 0.4 mg capsule See Rx Instructions .ROUTE .COMPLEX #90 cap 03/05/20 [Rx Confirmed 03/24/20 Last Taken 03/23/20 21:00] buprenorphine 8 mg-naloxone 2 mg sublingual film 1 film SUBLINGUAL TID #90 each 03/08/20 [Rx Confirmed 03/24/20 Last Taken 03/24/20 09:00] aripiprazole 2 mg tablet 2 mg PO QHS #30 tab 03/20/20 [Rx Confirmed 03/24/20 Last Taken Unknown] bupropion HCl 100 mg tablet See Rx Instructions .ROUTE .COMPLEX #90 tab 03/22/20 [Rx Confirmed 03/24/20 Last Taken 03/22/20 21:00] furosemide 40 mg tablet See Rx Instructions .ROUTE .COMPLEX #60 tab 03/22/20 [Rx Confirmed 03/24/20 Last Taken 03/23/20 21:00] ProAir HFA 90 mcg/actuation aerosol inhaler See Rx Instructions .ROUTE .COMPLEX #8.5 g NS 03/23/20 [Rx Confirmed 03/24/20 Last Taken 03/23/20 21:00] COURSE Hospital Course Hospital course: , Discharge diagnosis: . Time Spent with Patient Time attestation: Total time spent providing and/or coordinating discharge services: EXAM Constitutional Vitals: Temp Pulse Resp BP Pulse Ox 97.7 F 99 H 20 124/83 94 03/26/20 07:03 03/26/20 08:00 03/26/20 08:00 03/26/20 07:03 03/26/20 07:03 Discharge Data Data Completed and Pending Labs on day of discharge: Labs from last 24 hours 03/26/20 03/26/20 05:25 05:25 WBC 12.5 H RBC 4.08 L Hgb 14.0 Hct 41.0 MCV 100.5 H MCH 34.3 H MCHC 34.1 RDW 13.4 Plt Count 223 MPV 10.5 H Neut % (Auto) 75.7 Lymph % (Auto) 13.9 L Williamson % (Auto) 7.5 Eos % (Auto) 2.7 Baso % (Auto) 0.2 Lymph # (Auto) 1.74 Williamson # (Auto) 0.94 H Eos # (Auto) 0.34 Baso # (Auto) 0.03 Absolute Neutrophils 9.49 H Sodium 135 Potassium 3.5 Chloride 101 Carbon Dioxide 24 Anion Gap 10.0 BUN 7 Creatinine 0.7 GFR Calculation 119 Glucose 101 Uric Acid 4.5 Calcium 9.1 Phosphorus 2.5 Magnesium 2.2 Total Bilirubin 1.0 Direct Bilirubin 0.4 H GGT 248 H AST 38 ALT 42 H Alkaline Phosphatase 173 H Lactate Dehydrogenase 203 C-Reactive Protein 16.20 H Total Protein 6.6 Albumin 3.9 Globulin 2.7 Albumin/Globulin Ratio 1.4 Triglycerides 203 H Discharge Plan Patient/Caregiver Discharge Instructions Activity: increase activity as tolerated Diet: Low Fat Instructions: Pancreatitis (DC) Activity Restrictions/Additional Instructions: Resume low-fat diet as tolerated Refrain from alcohol use Refrain from substance abuse Follow up with Fide Carbajal on 04/04 at 2:15 pm. Please note, this is a time change Return to ER if worsening fever, chills, nausea and/or vomiting, chest pain, shortness of breath, diarrhea, unable to go to the bathroom, bleeding, return of symptoms, or other acute symptom. This discharge packet is provided to you to help keep you informed about your ca re. We want to ensure you get everything you need when you go home. You will also be receiving a call from us in a few days to follow up with you and see how you are doing since your discharge. This gives us a chance to listen to any concerns you maybe experiencing since you were discharged or any additional needs you may have, as well as providing us feedback on your care experience. We strive to always provide excellent care and thank you for your feedback and for choosing [facility]. Prescriptions: Continued cyclobenzaprine 10 mg tablet 10 mg PO Q8H PRN (Reason: muscle spasm) Qty: 90 RF: 3 potassium chloride 20 mEq tablet,ER particles/crystals 20 meq PO BID Qty: 60 RF: 5 budesonide-formoterol 160-4.5 mcg/actuation HFA aerosol inhaler 2 puff PO BID PRN (Reason: copd) Qty: 10.2 RF: 2 famotidine 20 mg tablet 20 mg PO QDAY Qty: 90 RF: 0 aripiprazole [Abilify] 2 mg tablet 2 mg PO QHS Qty: 30 RF: 0 mupirocin 2 % ointment 1 applic TOPICAL .COMPLEX Qty: 22 RF: 2 ondansetron HCl [Zofran] 4 mg tablet 4 mg PO Q8H PRN (Reason: nausea and vomiting) Qty: 30 RF: 0 buprenorphine-naloxone [Suboxone] 8-2 mg film 1 film SUBLINGUAL TID Qty: 90 RF: 0 gabapentin 300 mg capsule See Rx Instructions .ROUTE .COMPLEX Qty: 60 RF: 2 metoprolol succinate 50 mg tablet extended release 24 hr 50 mg PO QDAY Qty: 30 RF: 0 fluoxetine 40 mg capsule See Rx Instructions .ROUTE .COMPLEX Qty: 90 RF: 0 tamsulosin 0.4 mg capsule See Rx Instructions .ROUTE .COMPLEX Qty: 90 RF: 0 furosemide 40 mg tablet See Rx Instructions .ROUTE .COMPLEX Qty: 60 RF: 2 bupropion HCl 100 mg tablet See Rx Instructions .ROUTE .COMPLEX Qty: 90 RF: 2 albuterol sulfate [ProAir HFA] 90 mcg/actuation HFA aerosol inhaler See Rx Instructions .ROUTE .COMPLEX Qty: 8.5 RF: 3 Combivent Respimat 20-100 mcg/actuation mist 1 puff INHALATION QID Qty: 4 RF: 6 Follow Up Plan Follow up with: Fide Carbajal ARNP [Primary Care Provider] - 04/03/20 2:15 pm (Please note - this is a time change) Patient Disposition: Home, Self-Care Rehab Potential: Fair I certify that the patient requires SNF services: No Overall status at discharge: patient is progressing back to baseline Discharge Date/Time: 03/26/20 13:47 Discharge Orders: Discharge Order (Routine); Ordered 03/26/20 Ordered By: Wiliam Irene Discharge Comment: DC home with mother driving, ambulated. QUALITY VTE Deep Vein Thrombosis/Pulmonary Embolism Present on Admission: No
== END 2020-03-26 13:47 | disposition home or self-care (01) | DRG 440 ==
LOC: ED 16:09 → MEDSUR 20:31
PROVIDERS: ADMIT Internal Medicine; ATTEND Internal Medicine

== ENCOUNTER 2025-01-03 22:19 | Inpatient (IN) ==
[2025-01-03] MEDS: IPRATROPIUM/ALBUTEROL 3 ML AMPUL.NEB NEB ONE (22:45)
[2025-01-03 23:15] LABS: Basophils # (Auto) 0.06 K/mcL (0.00-0.30); Basophils % (Auto) 0.6 % (0.0-2.0); Eosinophils # (Auto) 0.16 K/mcL (0.00-0.70); Eosinophils % (Auto) 1.6 % (0.0-7.0); Hematocrit 51.6 % (40.1-51.0); Hemoglobin 16.4 g/dL (13.7-17.5); Lymphocytes # (Auto) 2.06 K/mcL (1.50-4.80); Lymphocytes % (Auto) 20.7 % (15.5-49.0); Mean Corpuscular HGB Conc 31.8 g/dL (31.0-36.0); Monocytes # (Auto) 0.80 K/mcL (0.10-0.90); Monocytes % (Auto) 8.0 % (1.0-12.0); Neutrophils % (Auto) 68.5 % (38.0-78.0); Platelet Count 190 K/mcL (140-440); RBC 5.60 M/mcL (4.63-6.08); WBC 10.0 K/mcL (4.5-11.0)
[2025-01-03 23:38] LABS: Anion Gap 10.0 (8.0-16.0); Blood Urea Nitrogen 8 mg/dL (6-20); Calcium 8.7 mg/dL (8.6-10.4); Carbon Dioxide 38 mmol/L (22-30); Chloride 98 mmol/L (96-108); Glucose 107 mg/dL (70-105); Potassium 3.4 mmol/L (3.3-5.1); Sodium 146 mmol/L (133-145)
[2025-01-04] MEDS ORDERED: ACETAMINOPHEN 325 MG TABLET PO PRN (00:17)
[2025-01-04] MEDS ORDERED: ONDANSETRON 4 MG/2 ML VIAL IV PRN (00:17)
[2025-01-04] MEDS: NICOTINE 21 MG PATCH TOPICAL ONE (00:33)
[2025-01-04] MEDS: IPRATROPIUM/ALBUTEROL 3 ML AMPUL.NEB NEB PRN (02:46)
[2025-01-04] MEDS: IPRATROPIUM/ALBUTEROL 3 ML AMPUL.NEB NEB SCH (08:34)
[2025-01-04 08:58] LABS: ALT/SGPT 17 U/L (<40); AST/SGOT 21 U/L (<40); Albumin 4.0 gm/dL (3.2-5.2); Albumin/Globulin Ratio 1.9 (1.0-2.3); Alkaline Phosphatase 86 U/L (39-117); Anion Gap 11.0 (8.0-16.0); Bilirubin,Direct < 0.2 mg/dL (0-0.3); Bilirubin,Total 0.4 mg/dL (0.1-1.0); Blood Urea Nitrogen 11 mg/dL (6-20); Calcium 9.3 mg/dL (8.6-10.4); Carbon Dioxide 33 mmol/L (22-30); Chloride 96 mmol/L (96-108); Globulin 2.1 gm/dL (2.2-3.7); Glucose 231 mg/dL (70-105); Phosphorous 2.5 mg/dL (2.5-4.5); Potassium 4.5 mmol/L (3.3-5.1); Sodium 140 mmol/L (133-145); Triglycerides 44 mg/dL (<150); Uric Acid 4.9 mg/dL (2.5-8.0)
[2025-01-04] MEDS ORDERED: DEXTROSE 31 GM ORAL.SUSP PO PRN (09:02)
[2025-01-04] MEDS ORDERED: DEXTROSE 50% 50 ML VIAL IV PRN (09:02)
[2025-01-04] MEDS: BUPRENORPHINE/NALOXONE 4MG/1MG ORAL FILM SL SCH (09:06)
[2025-01-04] MEDS: GABAPENTIN 300 MG CAPSULE PO SCH (09:08)
[2025-01-04 10:21] LABS: Estimated Average Glucose(eAG) 123.0 mg/dL; Hemoglobin A1C 5.9 % Hgb (4.0-6.0)
[2025-01-04] MEDS: BUPRENORPHINE/NALOXONE 4MG/1MG ORAL FILM SL ONE (10:35)
[2025-01-04] MEDS: acetaZOLAMIDE SOD 500 MG VIAL IV ONE (10:44)
[2025-01-04] MEDS: INSULIN LISPRO 1 UNIT/0.01 ML UNIT SQ SCH (13:03)
[2025-01-04] MEDS: NICOTINE POLACRILEX 2 MG GUM CHEW/PARK PRN (14:26)
[2025-01-04] MEDS: NICOTINE 21 MG PATCH TOPICAL SCH (14:27)
[2025-01-04 16:03] VITALS: TEMP 98.1; O2SAT 92
== END 2025-01-04 17:10 | disposition home or self-care (01) | DRG 189 ==
LOC: ED 22:19 → ICU 01-04 01:17
PROVIDERS: ADMIT Internal Medicine; ATTEND Internal Medicine